=== PATIENT | male | born 1955 | race African-American/Black ===

== ENCOUNTER 2023-12-03 13:54 | Inpatient (IN) | payer MEDICARE, OTHER ==
[~2023-12-03] VITALS: Ht 180.3 cm; Wt 93.6 kg
[2023-12-03 15:08] LABS: Basophils # (auto) 0 10 ^3/uL (0-0.2); Basophils % (auto) 0.3 % (0.0-2.0); Eosinophils # (auto) 0.1 10 ^3/uL (0-0.8); Eosinophils % (auto) 3.7 % (0.0-7.0); Hematocrit 38.3 % (41.0-53.0); Hemoglobin 12.8 g/dL (13.5-17.5); Lymphocytes # (auto) 1.1 10 ^3/uL (0.4-5.4); Lymphocytes % (auto) 31.9 % (10.0-50.0); Mean Corpuscular Hemoglobin 30.6 pg (28.0-32.0); Mean Corpuscular Hgb Conc. 33.5 g/dL (32.0-36.0); Mean Corpuscular Volume 91.3 fL (80.0-100.0); Monocytes # (auto) 0.3 10 ^3/uL (0-1.3); Monocytes % (auto) 8.3 % (0.0-12.0); Neutrophils # (auto) 1.9 10 ^3/uL (1.6-8.6); Neutrophils % (auto) 55.8 % (37.0-80.0); Nucleated Red Blood Cells % 0.4 %; Red Cell Distribution Width 14.4 % (11.8-14.3); White Blood Cell 3.5 10^3/uL (4.4-10.8)
[2023-12-03 15:27] LABS: Alanine Aminotransferase 18 U/L (7-40); Albumin 3.3 g/dL (3.2-4.8); Alkaline Phosphatase 61 U/L (46-116); Anion Gap 3 (5-15); Aspartate Aminotransferase 23 U/L (13-40); BUN/Creatinine Ratio 53.3 (10.0-20.0); Blood Alcohol < 3.0 mg/dL (<10); Blood Urea Nitrogen 48 mg/dL (9-23); Calcium 9.3 mg/dL (8.5-10.1); Carbon Dioxide 33 mmol/L (20-30); Chloride 109 mmol/L (98-107); Glucose 84 mg/dL (74-106); Potassium 3.8 mmol/L (3.5-5.1); Sodium 145 mmol/L (136-145)
[2023-12-03 15:28] LABS: Bilirubin, Total 0.3 mg/dL (0.2-1.0); Total Protein 5.7 g/dL (5.7-8.2)
[2023-12-03] MEDS ORDERED: ACETAMINOPHEN 325 MG TAB PO PRN (19:00)
[2023-12-03] MEDS ORDERED: NITROGLYCERIN 0.4 MG SL TAB SL PRN (19:00)
[2023-12-03] MEDS ORDERED: ONDANSETRON HCL 4 MG/2 ML VIAL IV PRN (19:00)
[2023-12-03] MEDS ORDERED: MORPHINE SULFATE INJ 2 MG/ml SYRG IV PRN (19:00)
[2023-12-03] MEDS ORDERED: DOCUSATE SOD 100 MG CAP PO PRN (19:00)
[2023-12-03 20:45] VITALS: PULSE 58; RESP 12; O2SAT 99
[2023-12-03 21:45] VITALS: PULSE 57; RESP 8; O2SAT 99
[2023-12-03] MEDS: SODIUM CHLORIDE 0.9% 500 ML IV ONE (22:08)
[2023-12-03] MEDS: SODIUM CHLORIDE 0.9% 1,000 ML IV SCH (22:09)
[2023-12-03] MEDS: PANTOPRAZOLE 40 MG/10 ML VIAL INJ IV SCH (22:43)
[2023-12-04] VITALS (7 sets, daily range): BP systolic 91–128; BP diastolic 58–74; PULSE 45–58; RESP 10–18; O2SAT 96–100
[2023-12-04 05:12] LABS: Basophils # (auto) 0 10 ^3/uL (0-0.2); Basophils % (auto) 0.3 % (0.0-2.0); Eosinophils # (auto) 0.2 10 ^3/uL (0-0.8); Hematocrit 39.1 % (41.0-53.0); Hemoglobin 13.1 g/dL (13.5-17.5); Lymphocytes # (auto) 1.1 10 ^3/uL (0.4-5.4); Lymphocytes % (auto) 26.7 % (10.0-50.0); Mean Corpuscular Hemoglobin 30.6 pg (28.0-32.0); Mean Corpuscular Hgb Conc. 33.6 g/dL (32.0-36.0); Mean Corpuscular Volume 90.9 fL (80.0-100.0); Monocytes # (auto) 0.4 10 ^3/uL (0-1.3); Neutrophils # (auto) 2.4 10 ^3/uL (1.6-8.6); Nucleated Red Blood Cells % 0.7 %; Red Cell Distribution Width 14.4 % (11.8-14.3); White Blood Cell 4.1 10^3/uL (4.4-10.8)
[2023-12-04 05:45] LABS: Alanine Aminotransferase 18 U/L (7-40); Albumin 3.4 g/dL (3.2-4.8); Alkaline Phosphatase 63 U/L (46-116); Anion Gap 5 (5-15); Aspartate Aminotransferase 24 U/L (13-40); Bilirubin, Total 0.4 mg/dL (0.2-1.0); Calcium 9.6 mg/dL (8.5-10.1); Carbon Dioxide 28 mmol/L (20-30); Chloride 111 mmol/L (98-107); Cholesterol 122 mg/dL (< 200); Glucose 73 mg/dL (74-106); HDL Cholesterol 43 mg/dL (40-59); LDL Cholesterol 55 mg/dL (< 100); Potassium 3.9 mmol/L (3.5-5.1); Sodium 144 mmol/L (136-145); Total Protein 6.1 g/dL (5.7-8.2); Triglycerides 53 mg/dL (< 150)
[2023-12-04 05:50] LABS: Blood Urea Nitrogen 30 mg/dL (9-23)
[2023-12-04] MEDS: ENOXAPARIN SOD 40 MG/0.4 ML SYRINGE SC SCH (09:08)
[2023-12-04] MEDS ORDERED: AML5T PO ×2 (09:42→10:09)
[2023-12-04] MEDS ORDERED: FLUT250M2 INH (09:55)
[2023-12-04] MEDS ORDERED: [UNRECOGNIZED DRUG - CODE] OP (10:09)
[2023-12-04] MEDS ORDERED: DORZ2SOL18 EACHEYE (10:09)
[2023-12-04] MEDS ORDERED: IPRAAER6 IN (10:09)
[2023-12-04] MEDS ORDERED: GLUC1CAP12 PO (10:09)
[2023-12-04] MEDS ORDERED: DIVA1TAB59 PO (10:09)
[2023-12-04] MEDS ORDERED: GLUCTAB8 OR (10:09)
[2023-12-04] MEDS ORDERED: MELA3TAB27 PO (10:09)
[2023-12-04] MEDS ORDERED: RIS1T PO (10:09)
[2023-12-04] MEDS ORDERED: QUET1TAB11 PO (10:09)
[2023-12-04] MEDS ORDERED: SPIR25TA8 PO (10:09)
[2023-12-04] MEDS ORDERED: BENA-25 PO (10:09)
[2023-12-04] MEDS ORDERED: LATA0.008 EACHEYE (10:09)
[2023-12-04] MEDS ORDERED: ALBUAER3 IN (10:09)
[2023-12-04] MEDS ORDERED: LORA-1121 PO (10:09)
[2023-12-04] MEDS: LORazepam 2MG/ML-1ML VIAL ONE (13:12)
[2023-12-04] MEDS: LORazepam 2MG/ML-1ML VIAL IV ONE (13:15)
[2023-12-04] MEDS: levETIRAcetam 1000 mg/100ml 100 ML IV ONE (14:26)
[2023-12-04] MEDS: ENALAPRIL MALEATE 10 MG TAB PO ONE (14:28)
[2023-12-04] MEDS: D5W/SOD CHL 0.45% 1,000 ML IV SCH (20:20)
[2023-12-04] MEDS ORDERED: LORazepam 2MG/ML-1ML VIAL IV PRN (20:30)
[2023-12-04] MEDS ORDERED: VALPROIC ACID 250 MG/5 ML ORAL SOLN GT SCH (22:00)
[2023-12-04] MEDS ORDERED: levETIRAcetam 500 mg/100ml 100 ML IV SCH (22:00)
[2023-12-04] MEDS: MELATONIN 5 MG TAB PO SCH (22:00)
[2023-12-04] MEDS: QUEtiapine FUMARATE 25 MG TAB PO SCH (22:00)
[2023-12-04] MEDS: VALPROIC ACID 250 MG/5 ML ORAL SOLN PO SCH (23:03)
[2023-12-05] VITALS (8 sets, daily range): BP systolic 101–122; BP diastolic 56–70; PULSE 45–68; RESP 12–18; TEMP 95.6; O2SAT 68–100
[2023-12-05 00:28] LABS: COVID19 ANTIGEN SOFIA FIA NEGATIVE (NEGATIVE)
[2023-12-05 04:08] LABS: Rapid Influenza A Negative (Negative); Rapid Influenza B Negative (Negative)
[2023-12-05] MEDS: risperiDONE 1 MG TAB PO SCH (09:46)
[2023-12-05] MEDS: amLODIPine BESYLATE 5 MG TAB PO SCH (09:53)
[2023-12-05] MEDS: SPIRONOLACTONE 25 MG TAB PO SCH (09:54)
[2023-12-05] MEDS: SODIUM CHLORIDE 0.9% 500 ML IV ONE (22:00)
[2023-12-06] VITALS (8 sets, daily range): BP systolic 105–142; BP diastolic 54–84; PULSE 50–79; RESP 12–61; TEMP 93.9–97.7; O2SAT 95–99
[2023-12-07] VITALS (10 sets, daily range): BP systolic 110–135; BP diastolic 62–77; PULSE 51–90; RESP 12–15; TEMP 93.4–98.3; O2SAT 97–99
[2023-12-08 05:00] VITALS: BP 152/85; PULSE 73; RESP 13; TEMP 94.2; O2SAT 98
[2023-12-08 06:13] LABS: Basophils # (auto) 0 10 ^3/uL (0-0.2); Basophils % (auto) 0.2 % (0.0-2.0); Eosinophils # (auto) 0.2 10 ^3/uL (0-0.8); Eosinophils % (auto) 3.6 % (0.0-7.0); Hematocrit 39.2 % (41.0-53.0); Hemoglobin 13.4 g/dL (13.5-17.5); Lymphocytes # (auto) 1.1 10 ^3/uL (0.4-5.4); Lymphocytes % (auto) 21.5 % (10.0-50.0); Mean Corpuscular Hemoglobin 30.5 pg (28.0-32.0); Mean Corpuscular Hgb Conc. 34.1 g/dL (32.0-36.0); Mean Corpuscular Volume 89.5 fL (80.0-100.0); Monocytes # (auto) 0.7 10 ^3/uL (0-1.3); Monocytes % (auto) 14.4 % (0.0-12.0); Neutrophils % (auto) 60.3 % (37.0-80.0); Nucleated Red Blood Cells % 0.4 %; Red Blood Cells 4.38 10^6/uL (4.5-5.90); Red Cell Distribution Width 14.1 % (11.8-14.3); White Blood Cell 4.9 10^3/uL (4.4-10.8)
[2023-12-08 08:00] VITALS: PULSE 89; RESP 12
[2023-12-08 09:00] VITALS: BP 116/86; PULSE 90; RESP 20; TEMP 97.3; O2SAT 99
[2023-12-08 16:04] VITALS: BP 116/86; PULSE 90; RESP 20; TEMP 36.3; O2SAT 99
[2023-12-08 17:00] VITALS: BP 114/77; PULSE 79; RESP 18; TEMP 97.7; O2SAT 98
== END 2023-12-08 18:00 | DRG 100 ==
LOC: EDBD 13:54 → ER 13:54 → OVERFLOW 18:56 → CENTRAL 12-04 08:25 → TELE-CENTR 12-05 00:06
PROVIDERS: ADMIT Family Medicine; ATTEND Family Medicine
DX: G40.901 Epilepsy, unspecified, not intractable, with status epilepticus (principal); G93.41 Metabolic encephalopathy; E86.0 Dehydration; F31.9 Bipolar disorder, unspecified; Z20.822 Contact with and (suspected) exposure to COVID-19; I10 Essential (primary) hypertension; H54.7 Unspecified visual loss; F25.9 Schizoaffective disorder, unspecified; F03.90 Unspecified dementia, unspecified severity, without behavioral disturbance, psychotic disturbance, mood disturbance, and anxiety
CPT/HCPCS: 36415; 70450; 70551; 71045; 80053; 80061; 80164; 80320; 82140; 82962; 83036; 84443; 84484; 85025; 85379; 87426; 87493; 87804; 92610; 93005; 95819; 97163; C9113; G0378; J7042

== ENCOUNTER 2024-02-17 18:40 | Inpatient (IN) | payer MEDICARE, MEDICAID ==
[~2024-02-17] VITALS: Ht 177.8 cm; Wt 84.0 kg
[~2024-02-17 18:40] MED LIST: ALBUAER3 IN; AML5T PO; BENA-25 PO; DIVA1TAB59 PO; DORZ2SOL18 EACHEYE; FLUT250M2 INH; GLUC1CAP12 PO; GLUCTAB8 OR; IPRAAER6 IN; LATA0.008 EACHEYE; LORA-1121 PO; MELA3TAB27 PO; QUET1TAB11 PO; RIS1T PO; SPIR25TA8 PO; [UNRECOGNIZED DRUG - CODE] OP
[2024-02-17 19:38] LABS: Basophils # (auto) 0 10 ^3/uL (0-0.2); Basophils % (auto) 0.7 % (0.0-2.0); Eosinophils # (auto) 0.3 10 ^3/uL (0-0.8); Eosinophils % (auto) 4.2 % (0.0-7.0); Hematocrit 40.8 % (41.0-53.0); Lymphocytes # (auto) 1.5 10 ^3/uL (0.4-5.4); Lymphocytes % (auto) 20.7 % (10.0-50.0); Mean Corpuscular Hemoglobin 31.3 pg (28.0-32.0); Mean Corpuscular Hgb Conc. 34.2 g/dL (32.0-36.0); Mean Corpuscular Volume 91.4 fL (80.0-100.0); Monocytes # (auto) 0.8 10 ^3/uL (0-1.3); Monocytes % (auto) 10.9 % (0.0-12.0); Neutrophils # (auto) 4.5 10 ^3/uL (1.6-8.6); Neutrophils % (auto) 63.5 % (37.0-80.0); Nucleated Red Blood Cells % 0.1 %; Red Blood Cells 4.47 10^6/uL (4.5-5.90); Red Cell Distribution Width 15.6 % (11.8-14.3)
[2024-02-17 19:59] LABS: INR 1.05 (0.9-1.15); Partial Thromboplastin Time 30.7 SEC (24.5-34.5); Prothrombin Time 11.1 sec (9.3-11.8)
[2024-02-17 20:07] LABS: Alanine Aminotransferase 17 U/L (7-40); Albumin 3.3 g/dL (3.2-4.8); Alkaline Phosphatase 68 U/L (46-116); Anion Gap 6 (5-15); Aspartate Aminotransferase 14 U/L (13-40); BUN/Creatinine Ratio 21.2 (10.0-20.0); Blood Urea Nitrogen 18 mg/dL (9-23); Calcium 9.1 mg/dL (8.7-10.4); Carbon Dioxide 25 mmol/L (20-30); Chloride 109 mmol/L (98-107); Glucose 95 mg/dL (74-106); Magnesium 1.7 mg/dL (1.6-2.6); Potassium 4.2 mmol/L (3.5-5.1); Sodium 140 mmol/L (136-145)
[2024-02-17 20:08] LABS: Bilirubin, Total 0.2 mg/dL (0.2-1.0); Total Protein 5.9 g/dL (5.7-8.2)
[2024-02-17] MEDS: ALBUTEROL SULF 2.5 MG/0.5ML(0.5%) NEB SOLN NEB ONE (20:24)
[2024-02-17] MEDS: IPRATROPIUM BROM 0.5 MG/2.5ML INH SOL NEB ONE (20:24)
[2024-02-17] MEDS: CLOPIDOGREL BISULFATE 75 MG TAB PO ONE (20:35)
[2024-02-17] MEDS: methylPREDNISolone SOD SUCC 125 MG/2 ML VL IV ONE (20:36)
[2024-02-17] MEDS: PIPERACILLIN-TAZOB 3.375GM 100 ML IV ONE (20:49)
[2024-02-17] MEDS: ASPirin 81 mg TAB PO ONE (20:50)
[2024-02-17 21:15] VITALS: PULSE 75
[2024-02-17] MEDS ORDERED: ACETAMINOPHEN 325 MG TAB PO PRN (22:45)
[2024-02-17] MEDS ORDERED: MORPHINE SULFATE INJ 2 MG/ml SYRG IV PRN (22:45)
[2024-02-17] MEDS ORDERED: ONDANSETRON HCL 4 MG/2 ML VIAL IV PRN (22:45)
[2024-02-17] MEDS ORDERED: NITROGLYCERIN 0.4 MG SL TAB SL PRN (22:45)
[2024-02-17] MEDS ORDERED: ALBUTEROL SULF 2.5 MG/0.5ML(0.5%) NEB SOLN NEB PRN (22:45)
[2024-02-18] VITALS (10 sets, daily range): BP systolic 103–129; BP diastolic 70–75; PULSE 57–102; RESP 16–22; TEMP 97.6–98.6; O2SAT 95–98
[2024-02-18 00:52] LABS: Urine Bacteria None Seen /hpf (None Seen)
[2024-02-18 01:06] LABS: Urine Blood Negative /uL (Negative); Urine Clarity Clear (Clear); Urine Color Yellow (Yellow); Urine Protein, UAD Negative (Negative); Urine Specific Gravity 1.028 (1.001-1.035); Urine Urobilinogen Normal (Negative); Urine WBC 2 /hpf (0 - 3); Urine pH 5.5 (5.0-9.0)
[2024-02-18 06:55] LABS: Basophils # (auto) 0 10 ^3/uL (0-0.2); Basophils % (auto) 0.1 % (0.0-2.0); Eosinophils # (auto) 0 10 ^3/uL (0-0.8); Hematocrit 42.6 % (41.0-53.0); Hemoglobin 14.6 g/dL (13.5-17.5); Lymphocytes # (auto) 0.7 10 ^3/uL (0.4-5.4); Lymphocytes % (auto) 9.6 % (10.0-50.0); Mean Corpuscular Hemoglobin 31.2 pg (28.0-32.0); Mean Corpuscular Hgb Conc. 34.2 g/dL (32.0-36.0); Mean Corpuscular Volume 91.1 fL (80.0-100.0); Monocytes # (auto) 0.1 10 ^3/uL (0-1.3); Monocytes % (auto) 1.2 % (0.0-12.0); Neutrophils # (auto) 6.6 10 ^3/uL (1.6-8.6); Neutrophils % (auto) 89.1 % (37.0-80.0); Red Blood Cells 4.67 10^6/uL (4.5-5.90); Red Cell Distribution Width 15.4 % (11.8-14.3); White Blood Cell 7.4 10^3/uL (4.4-10.8)
[2024-02-18 07:20] LABS: Calcium 9.8 mg/dL (8.7-10.4); Chloride 108 mmol/L (98-107); Sodium 139 mmol/L (136-145)
[2024-02-18 07:21] LABS: Anion Gap 8 (5-15); Carbon Dioxide 23 mmol/L (20-30)
[2024-02-18 07:26] LABS: BUN/Creatinine Ratio 15.9 (10.0-20.0); Blood Urea Nitrogen 14 mg/dL (9-23); Glucose 133 mg/dL (74-106)
[2024-02-18 09:26] LABS: Erythrocyte Sedimentation Rate 4 mm/hr (0-20)
[2024-02-18] MEDS: AZITHROMYCIN 500MG/ 250ML 250 ML IV SCH (09:34)
[2024-02-18] MEDS: cefTRIAXone 1GM/50ML D5W 50 ML IV SCH (09:34)
[2024-02-18] MEDS: amLODIPine BESYLATE 5 MG TAB PO SCH (09:35)
[2024-02-18] MEDS: SPIRONOLACTONE 25 MG TAB PO SCH (09:35)
[2024-02-18] MEDS: QUEtiapine FUMARATE 25 MG TAB PO SCH (09:35)
[2024-02-18] MEDS: risperiDONE 1 MG TAB PO SCH (09:36)
[2024-02-18] MEDS: ENOXAPARIN SOD 40 MG/0.4 ML SYRINGE SC SCH (09:36)
[2024-02-18] MEDS: ERGOCALCIFEROL 50,000 UNIT(1.25MG) CAP PO SCH (11:06)
[2024-02-18] MEDS: PANTOPRAZOLE 40 MG TAB PO ONE (11:06)
[2024-02-18] MEDS: MAGNESIUM SULFATE 1GM/100ML 100 ML IV ONE (13:32)
[2024-02-18] MEDS: MELATONIN 5 MG TAB PO SCH (21:11)
[2024-02-18] MEDS: DORZOLAMIDE HCL 2% OPTH(EYE) SOL 10ML EACHEYE SCH (22:42)
[2024-02-19] VITALS (7 sets, daily range): BP systolic 101–131; BP diastolic 60–79; PULSE 57–70; RESP 16–21; TEMP 97.8–98.9; O2SAT 95–99
[2024-02-19] MEDS: PANTOPRAZOLE 40 MG TAB PO SCH (06:00)
[2024-02-19 06:44] LABS: Anion Gap 10 (5-15); Carbon Dioxide 26 mmol/L (20-30); Chloride 107 mmol/L (98-107); Potassium 4.1 mmol/L (3.5-5.1); Sodium 143 mmol/L (136-145)
[2024-02-19 06:45] LABS: Calcium 9.2 mg/dL (8.7-10.4)
[2024-02-19 06:50] LABS: BUN/Creatinine Ratio 15.2 (10.0-20.0); Blood Urea Nitrogen 14 mg/dL (9-23); Glucose 88 mg/dL (74-106)
[2024-02-19] MEDS: QUEtiapine FUMARATE 25 MG TAB PO SCH (10:00)
[2024-02-19] MEDS: LORazepam 2MG/ML-1ML VIAL IV ONE (10:15)
[2024-02-19] MEDS: MIDAZOLAM HCL 2MG/2ML 2ml VIAL (1mg/ml) ONE (10:46)
[2024-02-19] MEDS: LIDOCAINE 2%HCL (LOCAL ANESTH.) INJ 10ml MDV ONE (10:58)
[2024-02-19] MEDS: fentaNYL CITRATE 100 MCG/2 ML VL ONE (10:58)
[2024-02-19] MEDS: ENOXAPARIN SOD 40 MG/0.4 ML SYRINGE SC SCH (11:07)
[2024-02-20 05:00] VITALS: BP 112/71; PULSE 45; RESP 18; TEMP 97.9; O2SAT 99
[2024-02-20] MEDS: HYDROcodone-ACET 5/325MG TAB PO PRN (06:03)
[2024-02-20 07:07] LABS: Basophils # (auto) 0 10 ^3/uL (0-0.2); Basophils % (auto) 0.6 % (0.0-2.0); Eosinophils # (auto) 0.4 10 ^3/uL (0-0.8); Eosinophils % (auto) 5.4 % (0.0-7.0); Hematocrit 37.8 % (41.0-53.0); Lymphocytes # (auto) 1.9 10 ^3/uL (0.4-5.4); Lymphocytes % (auto) 29.2 % (10.0-50.0); Mean Corpuscular Hemoglobin 31.3 pg (28.0-32.0); Mean Corpuscular Hgb Conc. 34.4 g/dL (32.0-36.0); Monocytes # (auto) 0.6 10 ^3/uL (0-1.3); Monocytes % (auto) 8.7 % (0.0-12.0); Neutrophils # (auto) 3.7 10 ^3/uL (1.6-8.6); Neutrophils % (auto) 56.1 % (37.0-80.0); Nucleated Red Blood Cells % 0.1 %; Red Blood Cells 4.15 10^6/uL (4.5-5.90); Red Cell Distribution Width 15.3 % (11.8-14.3); White Blood Cell 6.6 10^3/uL (4.4-10.8)
[2024-02-20 07:21] LABS: Anion Gap 4 (5-15); Calcium 9.1 mg/dL (8.7-10.4); Carbon Dioxide 28 mmol/L (20-30); Chloride 108 mmol/L (98-107); Potassium 4.1 mmol/L (3.5-5.1); Sodium 140 mmol/L (136-145)
[2024-02-20 07:27] LABS: BUN/Creatinine Ratio 20.8 (10.0-20.0); Blood Urea Nitrogen 16 mg/dL (9-23); Glucose 83 mg/dL (74-106)
[2024-02-20 08:00] VITALS: PULSE 72; RESP 16; O2SAT 95
[2024-02-20 09:00] VITALS: BP 112/72; PULSE 55; RESP 16; TEMP 97.1; O2SAT 97
[2024-02-20 13:00] VITALS: BP 102/57; PULSE 69; RESP 18; TEMP 97.4; O2SAT 98
[2024-02-20] MEDS: SODIUM CHLORIDE 0.9% 500 ML IV ONE (13:33)
[2024-02-20 17:00] VITALS: BP 93/60; PULSE 58; RESP 16; TEMP 97.7; O2SAT 98
[2024-02-20 20:00] VITALS: PULSE 64; RESP 16; O2SAT 98
[2024-02-21 04:56] VITALS: BP 122/71; PULSE 50; RESP 15; TEMP 97.8; O2SAT 98
[2024-02-21 09:00] VITALS: BP 129/81; PULSE 61; RESP 16; TEMP 98; O2SAT 99
[2024-02-21] MEDS: ASPirin 81 mg TAB PO SCH (09:42)
[2024-02-21 10:15] LABS: Chloride 107 mmol/L (98-107); Potassium 3.9 mmol/L (3.5-5.1); Sodium 139 mmol/L (136-145)
[2024-02-21 10:16] LABS: Anion Gap 4 (5-15); Carbon Dioxide 28 mmol/L (20-30)
[2024-02-21 10:17] LABS: Calcium 9.1 mg/dL (8.7-10.4)
[2024-02-21 10:21] LABS: BUN/Creatinine Ratio 17.5 (10.0-20.0); Blood Urea Nitrogen 14 mg/dL (9-23); Glucose 99 mg/dL (74-106)
[2024-02-21 13:00] VITALS: BP 126/67; PULSE 61; RESP 16; TEMP 97.9; O2SAT 99
[2024-02-21 17:00] VITALS: BP 113/71; PULSE 54; RESP 16; TEMP 97.7; O2SAT 97
[2024-02-21] MEDS: ATORVASTATIN 20 MG TAB PO SCH (21:49)
[2024-02-22 00:57] VITALS: BP 122/74; PULSE 51; RESP 18; TEMP 97.9; O2SAT 97
[2024-02-22] MEDS: LORazepam 2MG/ML-1ML VIAL IV PRN (01:33)
[2024-02-22 04:52] VITALS: BP 128/77; PULSE 60; RESP 19; TEMP 97.9; O2SAT 97
[2024-02-22 07:22] LABS: Anion Gap 7 (5-15); Carbon Dioxide 25 mmol/L (20-30); Chloride 107 mmol/L (98-107); Sodium 139 mmol/L (136-145)
[2024-02-22 07:23] LABS: Calcium 9.7 mg/dL (8.7-10.4)
[2024-02-22 07:28] LABS: BUN/Creatinine Ratio 12.5 (10.0-20.0); Blood Urea Nitrogen 10 mg/dL (9-23); Glucose 84 mg/dL (74-106)
[2024-02-22 09:31] VITALS: BP 139/83; PULSE 61; RESP 17; TEMP 97.7; O2SAT 98
[2024-02-22] MEDS: SUCRALFATE 1 GM TAB PO SCH (09:47)
[2024-02-22] MEDS: PANTOPRAZOLE 40 MG/10 ML VIAL INJ IV SCH (09:47)
[2024-02-22 13:26] VITALS: BP 135/82; PULSE 88; RESP 18; TEMP 97.6; O2SAT 98
[2024-02-22 16:38] VITALS: BP 133/80; PULSE 87; RESP 18; TEMP 97.8; O2SAT 97
[2024-02-22 21:00] VITALS: BP 135/79; PULSE 56; RESP 20; TEMP 97.9; O2SAT 98
[2024-02-23 01:00] VITALS: BP 139/71; PULSE 54; RESP 20; TEMP 98; O2SAT 97
[2024-02-23 05:00] VITALS: BP 130/95; PULSE 55; RESP 20; TEMP 98.1; O2SAT 98
[2024-02-23 09:00] VITALS: BP 127/70; PULSE 56; RESP 19; TEMP 99.6; O2SAT 100
[2024-02-23 13:00] VITALS: BP 118/74; PULSE 76; RESP 18; TEMP 98.2; O2SAT 99
[2024-02-23] MEDS ORDERED: GASTROGRAFIN 120 ML SOL ONE (14:29)
[2024-02-23 17:00] VITALS: BP 126/72; PULSE 65; RESP 17; TEMP 98.2; O2SAT 98
[2024-02-23] MEDS: OMNIPAQUE 12mg/ml 500ml ORAL SOLUTION PO ONE (17:34)
[2024-02-23] MEDS: fentaNYL CITRATE 100 MCG/2 ML VL IV ONE (17:34)
[2024-02-23] MEDS: IOHEXOL 300 MG/ML 100ML BOTTLE IJ ONE (17:34)
[2024-02-23 20:00] VITALS: RESP 20
[2024-02-24] VITALS (7 sets, daily range): BP systolic 94–122; BP diastolic 62–71; PULSE 52–64; RESP 16–20; TEMP 97.5–98.7; O2SAT 95–100
[2024-02-24 07:03] LABS: Basophils # (auto) 0 10 ^3/uL (0-0.2); Basophils % (auto) 0.4 % (0.0-2.0); Eosinophils # (auto) 0.3 10 ^3/uL (0-0.8); Eosinophils % (auto) 4.5 % (0.0-7.0); Hematocrit 42.3 % (41.0-53.0); Hemoglobin 14.5 g/dL (13.5-17.5); Lymphocytes # (auto) 1.4 10 ^3/uL (0.4-5.4); Lymphocytes % (auto) 20.3 % (10.0-50.0); Mean Corpuscular Hemoglobin 31.1 pg (28.0-32.0); Mean Corpuscular Hgb Conc. 34.3 g/dL (32.0-36.0); Mean Corpuscular Volume 90.7 fL (80.0-100.0); Monocytes # (auto) 0.9 10 ^3/uL (0-1.3); Monocytes % (auto) 13.6 % (0.0-12.0); Neutrophils # (auto) 4.1 10 ^3/uL (1.6-8.6); Neutrophils % (auto) 61.2 % (37.0-80.0); Nucleated Red Blood Cells % 0.1 %; Red Blood Cells 4.66 10^6/uL (4.5-5.90); Red Cell Distribution Width 14.5 % (11.8-14.3); White Blood Cell 6.7 10^3/uL (4.4-10.8)
[2024-02-24 07:04] LABS: Chloride 104 mmol/L (98-107); Potassium 4.4 mmol/L (3.5-5.1); Sodium 136 mmol/L (136-145)
[2024-02-24 07:05] LABS: Anion Gap 5 (5-15); Calcium 9.4 mg/dL (8.7-10.4); Carbon Dioxide 27 mmol/L (20-30)
[2024-02-24 07:10] LABS: BUN/Creatinine Ratio 9.9 (10.0-20.0); Blood Urea Nitrogen 9 mg/dL (9-23); Glucose 86 mg/dL (74-106)
[2024-02-24] MEDS ORDERED: GASTROGRAFIN 120 ML SOL ONE (12:39)
[2024-02-24] MEDS ORDERED: CLINIMIX PER PHARMACY 0 ML IV SCH (19:00)
[2024-02-24] MEDS ORDERED: DEXTROSE (50%) 50ML SYRG IV SCH (20:00)
[2024-02-24] MEDS: AMINO ACID INFUSION IN D10W 1,000 ML IV SCH (21:46)
[2024-02-25] MEDS: InsuLIN REG 1unit/0.01ml Soln (100units/ml) SC SCH
[2024-02-25] MEDS: ACCU-CHEK COMFORT CURVE STRIP VI SCH (00:03)
[2024-02-25 01:00] VITALS: BP 99/59; PULSE 63; RESP 19; TEMP 97.3; O2SAT 95
[2024-02-25 05:00] VITALS: BP 114/67; PULSE 46; RESP 19; TEMP 97.6; O2SAT 97
[2024-02-25 09:00] VITALS: BP 113/70; PULSE 61; RESP 18; TEMP 97.8; O2SAT 96
[2024-02-25 13:00] VITALS: BP 119/79; PULSE 64; RESP 18; TEMP 98; O2SAT 95
[2024-02-25 14:19] VITALS: BP 114/64; PULSE 82; RESP 18; TEMP 36.4; O2SAT 96
== END 2024-02-25 16:15 | DRG 199 ==
LOC: ER 18:40 → EDBD 18:40 → TELE 22:49 → TELE-EAST 02-18 03:47 → EAST 02-19 04:20 → WEST WING 02-23 18:46
PROVIDERS: ADMIT Internal Medicine; ATTEND Anesthesiology
PROC: 0W9B30Z Drainage of Left Pleural Cavity with Drainage Device, Percutaneous Approach (ICD-10-PCS; principal; 2024-02-19)
DX: J93.11 Primary spontaneous pneumothorax (principal); J15.69 Pneumonia due to other Gram-negative bacteria; J96.01 Acute respiratory failure with hypoxia; J15.9 Unspecified bacterial pneumonia; I69.354 Hemiplegia and hemiparesis following cerebral infarction affecting left non-dominant side; I50.32 Chronic diastolic (congestive) heart failure; J98.11 Atelectasis; K80.20 Calculus of gallbladder without cholecystitis without obstruction; K59.00 Constipation, unspecified; F31.9 Bipolar disorder, unspecified; E55.9 Vitamin D deficiency, unspecified; Z96.651 Presence of right artificial knee joint; I11.0 Hypertensive heart disease with heart failure; K21.9 Gastro-esophageal reflux disease without esophagitis; F20.9 Schizophrenia, unspecified; Z79.899 Other long term (current) drug therapy; Z87.891 Personal history of nicotine dependence; Z79.82 Long term (current) use of aspirin
CPT/HCPCS: 10005; 36415; 71045; 71250; 74018; 74176; 74177; 74250; 77012; 80048; 80053; 81001; 82306; 82607; 82962; 83036; 83735; 83880; 84443; 84484; 85025; 85610; 85652; 85730; 86141; 87081; 93005; 93306; 93971; 94640; 96374; 99291; C1729; G0378; J2001; J2250; J2470; J2543

== ENCOUNTER 2024-06-03 14:44 | Inpatient (IN) | payer MEDICARE, MEDICAID ==
[~2024-06-03] VITALS: Ht 180.3 cm; Wt 83.3 kg
[~2024-06-03 14:44] MED LIST changes: +BRIM1SOL OP; -[UNRECOGNIZED DRUG - CODE] OP
[2024-06-03 15:10] VITALS: PULSE 73; RESP 20; O2SAT 100
--- NOTE | 2024-06-03 15:34 | ED.PDOC ---
HPI (NEURO) HPI Comments 68y F who presents to the ED via EMS for chief complaint of hypotension. EMS states pt is resident at local care facility and states pt has unwitnessed syncopal episode and was found on the ground and EMS was called to the scene.EMS states sitting down from standing position and states pt started to have pale complexion and felt dizzy EMS states on scene pt had BP of 77/51 and pt was given 1 L of fluid bolus. Pt had vitals checked and pt BP sanya to 109/58 and pt was brought to the ED. Pt has noted history of HLD, dementia, CVA and schizophrenia. Pt unable to answer any questions at this time but is alert and oriented x 2 in the ED. Chief Complaint: Low Blood Pressure Time Seen by MD: 15:32 Primary Care Provider: UNKNOWN Reviewed Notes: Home Health Administrator Notes Information Source: Emergency Med Personnel Mode of Arrival: EMS Brought in by: EMS Past Medical History PAST MEDICAL HISTORY: Angina, CVA, Dementia, Seizures Surgical History: Unknown Family History Family History: Unknown Social History Smoker: Non-Smoker Alcohol: Denies ETOH Use Drugs: Denies Drug Use Lives In: Longterm Constitutional: reports: fatigue, malaise, weakness; denies: chills, diaphoresis, fever, sweats, others EENTM: denies: blurred vision, double vision, ear bleeding, ear discharge, ear drainage, ear pain, ear ringing, eye pain, eye redness, hearing loss, mouth pain, mouth swelling, nasal discharge, nose bleeding, nose congestion, nose pain, photophobia, tearing, throat pain, throat swelling, voice changes, others Respiratory: denies: cough, hemoptysis, orthopnea, SOB at rest, shortness of breath, SOB with excertion, stridor, wheezing, others Cardiovascular: denies: chest pain, dizzy spells, diaphoresis, Dyspnea on exertion, edema, irregular heart beat, left arm pain, lightheadedness, palpitations, PND, syncope, others Gastrointestinal: denies: abdomen distended, abdominal pain, blood streaked bowels, constipated, diarrhea, dysphagia, difficulty swallowing, hematemesis, melena, nausea, poor appetite, poor fluid intake, rectal bleeding, rectal pain, vomiting, others Genitourinary: denies: burning, dysuria, flank pain, frequency, hematuria, incontinence, penile discharge, penile sore, pain, testicle pain, testicle swelling, urgency, others Neurological: denies: dizziness, fainting, headache, left sided numbness, left sided weakness, numbness, paresthesia, pre-existing deficit, right sided numbness, right sided weakness, seizure, speech problems, tingling, tremors, weakness, others Musculoskeletal: denies: back pain, gout, joint pain, joint swelling, muscle pain, muscle stiffness, neck pain, others Integumetry: denies: bruises, change in color, change in hair/nails, dryness, laceration, lesions, lumps, rash, wounds, others Allergic/Immunocompromised: denies: Difficulty Healing, Frequent Infections, Hives, Itching, others Hematologic/Lymphatic: denies: anemia, blood clots, easy bleeding, easy bruising, swollen glands, others Endocrine: denies: excessive hunger, excessive sweating, excessive thirst, excessive urination, flushing, intolerance to cold, intolerance to heat, unexplained weight gain, unexplained weight loss, others Psychiatric: denies: anxiety, bipolar disorder, depression, hopeless, panic disorder, schizophrenia, sleepless, suicidal, others All Other Systems: Reviewed and Negative Physical Exam General Appearance: Moderate Distress HEENT: Normal ENT Inspection, Pharynx Normal, TMs Normal Neck: Full Range of Motion, Non-Tender, Normal, Normal Inspection Respiratory: Chest Non-Tender, Lungs Clear, No Accessory Muscle Use, No Respiratory Distress, Normal Breath Sounds Cardiovascular: No Edema, No JVD, No Murmur, No Gallop, Normal Peripheral Pulses, Regular Rate/Rhythm Breast Exam: Deferred Gastrointestinal: No Organomegaly, Non Tender, No Pulsatile Mass, Normal Bowel Sounds, Soft Genitalia: Deferred Pelvic: Deferred Rectal: Deferred Extremities: Decreased range of motion Musculoskeletal : Apperance: Normal Neurologic: Disoriented Cerebellar Function: NOT DONE Reflexes: NOT DONE Skin: Pallor Peripheral Pulses: 3+ Radial (R), 3+ Radial (L) Lymphatic: No Adenopathy Was a procedure done? Was a procedure done?: No Differential Diagnosis (SZ) Seizure: Psychogenic Seizure, Closed Head Injury, CVA/TIA General Weakness: Anemia, CVA, Dehydration, Electrolyte imbalance, Encephalopathy, Hypoglycemia, Hypotension, Myocardial infarction, Pulmonary embolus, TIA X-Ray, Labs, Meds, VS Vital Signs Date Time Temp Pulse Resp B/P (MAP) Pulse Ox O2 Delivery O2 Flow Rate FiO2 06/03/24 15:16 98.1 82 18 78/51 (60) 97 06/03/24 15:04 97.5 83 14 91/64 (73) 100 97.5 06/03/24 14:44 91 Lab Test 06/03/24 15:20 Range/Units White Blood Count 3.8 L 4.4-10.8 10^3/uL Red Blood Count 4.31 L 4.5-5.90 10^6/uL Hemoglobin 13.5 13.5-17.5 g/dL Hematocrit 38.9 L 41.0-53.0 % Mean Corpuscular Volume 90.1 80.0-100.0 fL Mean Corpuscular Hemoglobin 31.2 28.0-32.0 pg Mean Corpuscular Hemoglobin Concent 34.6 32.0-36.0 g/dL Red Cell Distribution Width 19.9 H 11.8-14.3 % Platelet Count 113 L 140-450 10^3/uL Mean Platelet Volume 7.8 6.9-10.8 fL Neutrophils (%) (Auto) 59.6 37.0-80.0 % Lymphocytes (%) (Auto) 21.7 10.0-50.0 % Monocytes (%) (Auto) 14.0 H 0.0-12.0 % Eosinophils (%) (Auto) 4.2 0.0-7.0 % Basophils (%) (Auto) 0.5 0.0-2.0 % Neutrophils # (Auto) 2.3 1.6-8.6 10 ^3/uL Lymphocytes # (Auto) 0.8 0.4-5.4 10 ^3/uL Monocytes # (Auto) 0.5 0-1.3 10 ^3/uL Eosinophils # (Auto) 0.2 0-0.8 10 ^3/uL Basophils # (Auto) 0 0-0.2 10 ^3/uL Nucleated Red Blood Cells 0.1 % Sodium Level Pending Potassium Level Pending Chloride Level Pending Carbon Dioxide Level Pending Anion Gap Pending Blood Urea Nitrogen Pending Creatinine Pending Glomerular Filtration Rate Calc Pending BUN/Creatinine Ratio Pending Serum Glucose Pending Calcium Level Pending Troponin I High Sensitivity 6 </=54 ng/L Patient disoriented. Dementia. Hypotension. Establish intravenous access. Was given fluids. Cardiac marker within normal limits. Possibly immunosuppressed. Chronic condition. Unknown whether infection. Reviewed his previous visit. Waiting for family. Continue cardiac monitoring. EKG reviewed does not show any acute changes. Time of 1ST Reevaluation: 16:00 Reevaluation 1ST: Unchanged Patient Education/Counseling: Other (pt has history of dementia) Family Education/Counseling: Diagnosis, No Family Present Departure 1 Departure Time of Disposition: 16:31 Impression: Primary Impression: Metabolic encephalopathy Additional Impressions: Anemia Qualified Codes: D64.9 - Anemia, unspecified Hypotension Qualified Codes: I95.9 - Hypotension, unspecified Disposition: ADMITTED INPATIENT Admit to: Med Surg Condition: Guarded Critical Care Note Critical Care Time?: Yes (45 min-critical care time only) Stability Stability form required: No Heart Score Heart Score: Heart Score Response (Comments) Value History Slightly Suspicious 0 EKG Normal 0 Age >65 2 Risk Factors >3 or Hx ASHD 2 Troponin Normal limit 0 Total 4 I personally scribed for LEWIS AVILA MD ([email or web address]) on 06/03/24 at 15:34. Electronically submitted by Elizabeth Bettencourt ([email or web address]). LEWIS AVILA MD Jun 03, 2024 15:34
--- NOTE | 2024-06-03 15:41 | DVH ---
CHEST RADIOGRAPH Indication:sob Technique: Single frontal view of the chest was obtained COMPARISON: XY CHEST XRAY 1 VIEW on DOS: 02/25/24, XY CHEST XRAY 1 VIEW on DOS: 02/24/24, XY CHEST XRAY 1 VIEW on DOS: 02/23/24 FINDINGS: Lines and Tubes: None Lungs: Mild congestion Pleura: No effusion. No pneumothorax. Cardiomediastinal contours: Cardiomegaly Bones: Unremarkable IMPRESSION: Cardiomegaly and mild congestion
[2024-06-03 15:56] LABS: Basophils # (auto) 0 10 ^3/uL (0-0.2); Basophils % (auto) 0.5 % (0.0-2.0); Eosinophils # (auto) 0.2 10 ^3/uL (0-0.8); Eosinophils % (auto) 4.2 % (0.0-7.0); Hematocrit 38.9 % (41.0-53.0); Hemoglobin 13.5 g/dL (13.5-17.5); Lymphocytes # (auto) 0.8 10 ^3/uL (0.4-5.4); Lymphocytes % (auto) 21.7 % (10.0-50.0); Mean Corpuscular Hemoglobin 31.2 pg (28.0-32.0); Mean Corpuscular Hgb Conc. 34.6 g/dL (32.0-36.0); Mean Corpuscular Volume 90.1 fL (80.0-100.0); Monocytes # (auto) 0.5 10 ^3/uL (0-1.3); Neutrophils # (auto) 2.3 10 ^3/uL (1.6-8.6); Neutrophils % (auto) 59.6 % (37.0-80.0); Nucleated Red Blood Cells % 0.1 %; Platelet Count (auto) 113 10^3/uL (140-450); Red Blood Cells 4.31 10^6/uL (4.5-5.90); Red Cell Distribution Width 19.9 % (11.8-14.3); White Blood Cell 3.8 10^3/uL (4.4-10.8)
[2024-06-03 16:46] LABS: Chloride 112 mmol/L (98-107); Potassium 3.5 mmol/L (3.5-5.1); Sodium 146 mmol/L (136-145)
[2024-06-03 16:47] LABS: Anion Gap 6 (5-15); Calcium 8.8 mg/dL (8.7-10.4); Carbon Dioxide 28 mmol/L (20-31)
[2024-06-03 16:52] LABS: BUN/Creatinine Ratio 24.7 (10.0-20.0); Blood Urea Nitrogen 21 mg/dL (9-23); Glucose 85 mg/dL (74-106)
[2024-06-03] MEDS: SODIUM CHLORIDE 0.9% 1,000 ML IV ONE ×2 (16:53→17:20)
--- NOTE | 2024-06-03 19:21 | ECG ---
[facility] Test Date: 2024-06-03 Test Time: 14:44:58 Pat Name: NGOZI CURRIE Department: ED Room: Gender: M Tube Man: DEEDEE : 1955 Requested By: EMERGENCY EMERGENCY Order Number: [id number] Reading MD: Measurements Intervals [place] Rate: 91 P: 27 UT: 217 QRS: -77 QRSD: 103 T: 22 QT: 379 QTc: 467 Interpretive Statements Sinus rhythm Prolonged UT interval Inferior infarct, old Artifact in lead(s) I,II,III,aVR,aVL,V1,V2,V3,V4 and baseline wander in lead(s) V6 Please click the below link to view image of tracing.
[2024-06-03 19:45] VITALS: PULSE 83; RESP 19; O2SAT 100
[2024-06-03] MEDS ORDERED: ACETAMINOPHEN 325 MG TAB PO PRN (21:30)
[2024-06-03] MEDS ORDERED: ONDANSETRON HCL 4 MG/2 ML VIAL IV PRN (21:30)
[2024-06-03] MEDS ORDERED: ALBUTEROL SULF 2.5 MG/0.5ML(0.5%) NEB SOLN NEB PRN (21:30)
[2024-06-03] MEDS ORDERED: DOCUSATE SOD 100 MG CAP PO PRN (21:30)
--- NOTE | 2024-06-03 21:41 | DVHHP2 ---
History of Present Illness Reason for Visit: Hypotension, unspecified History of Present Illness Patient is a 68-year-old male with past medical history of angina, CVA, dementia, and seizures who presented to [facility] ED for evaluation of hypotension. As reported by EMS, patient has unwitnessed syncopal episode and was found on the ground. When EMS arrived on the scene, patient was seen sitting down from standing position, developed pale complexion, felt dizzy, blood pressure was 77/51 and was given 1 L of normal saline bolus with improved BP at 109/58 en route to our facility. Patient was seen and evaluated in the ED, laboratory data shows WBC 3.8, platelets 113, hemoglobin 13.5, hematocrit 38.9, sodium 146, potassium 3.5, BUN 21, creatinine 0.85, glucose 85, troponin 6, blood pressure 131/83, heart rate 82, temperature 98.1 F, O2 saturation 98% room air. Chest x-ray revealing cardiomegaly and mild congestion. Please see medicat ion orders section in the computer. On my assessment, patient remains altered, no diaphoresis, no dizziness, no shortness of breath, no nausea, no vomiting, no fever, no chills. Patient was admitted for further evaluation and medical management. Past Medical History Angina, CVA, Dementia, Seizures Past Surgical History No past surgical history on file Family History Reviewed, noncontributory to the management of this case. Past Social History The patient lives at home, denies smoking, alcohol or illicit drugs abuse. Review of Systems Constitutional: Yes: Weakness, Malaise, Other (Fatigue); No: Fever, Chills, Sweats Eyes: No: Pain, Vision change, Conjunctivae inflammation, Eyelid inflammation, Other, Redness ENT: No: Ear pain, Ear discharge, Nose pain, Nose discharge, Nose congestion, Mouth pain, Mouth swelling, Throat pain, Throat swelling, Other Respiratory: No: Cough, Dry, Shortness of breath, SOB with excertion, Wheezing, Hemoptysis, Pleuritic Pain, Sputum, Wheezing, Other Cardiovascular: No: Chest Pain, Palpitations, Orthopnea, Paroxysmal Noc. Dyspnea, Edema, Lt Headedness, Other Genitourinary: No Dysuria, No Frequency, No Incontinence, No Hematuria, No Retention, No Other Musculoskeletal: No: other, neck pain, shoulder pain, arm pain, back pain, hand pain, leg pain, foot pain Skin: No: Rash, Lesions, Jaundice, Bruising, Other Neurological: No: Weakness, Numbness, Incoordination, Change in speech, Confusion, Seizures, Other Allergies: Coded Allergies: NO KNOWN ALLERGIES (Unverified , 12/03/23) Medications Current Medications Medications Dose Ordered Sig/Gabriella Route Start Time Stop Time Status Last Admin Dose Admin Albuterol 2.5 mg Q4HPRN PRN NEB 06/03/24 21:30 UNV Divalproex Sodium 500 mg TID PO 06/03/24 22:00 UNV Sodium Chloride 10 ml Q8HR IV 06/03/24 22:00 UNV Acetaminophen/ Hydrocodone Bitart 1 tab Q4HP PRN PO 06/03/24 21:30 UNV Ondansetron HCl 4 mg Q4HP PRN IV 06/03/24 21:30 UNV Docusate Sodium 100 mg BIDPRN PRN PO 06/03/24 21:30 UNV Acetaminophen 650 mg Q6HP PRN PO 06/03/24 21:30 UNV Exam Vital Signs Vital Signs Date Time Temp Pulse Resp B/P (MAP) Pulse Ox O2 Delivery O2 Flow Rate FiO2 06/03/24 20:00 64 06/03/24 19:00 17 131/83 (99) 98 06/03/24 15:16 98.1 06/03/24 15:10 Room Air* 0 21 General Appearance: Alert, Cooperative, No acute distress, Other (Oriented x2) HEENT: Atraumatic, PERRLA, EOMI, Mucous membr. moist/pink Respiratory: Normal air movement Cardiovascular: Regular rate, Normal S1, Normal S2, No murmurs Abdominal: Normal bowel sounds, Soft, No tenderness, No hepatospenomegaly, No masses Extremities: No clubbing, No cyanosis, No edema, Normal pulses, No tenderness/swelling Skin: No rashes, No breakdown Neuro: Normal speech, Normal tone, Sensation intact, Cranial nerves 3-12 NL, Reflexes 2+, Other (Generalized weakness) Psych/Mental Status: Mood NL, Other (Altered mental status) Labs/Xrays Labs Test 06/03/24 15:20 Range/Units White Blood Count 3.8 L 4.4-10.8 10^3/uL Red Blood Count 4.31 L 4.5-5.90 10^6/uL Hemoglobin 13.5 13.5-17.5 g/dL Hematocrit 38.9 L 41.0-53.0 % Mean Corpuscular Volume 90.1 80.0-100.0 fL Mean Corpuscular Hemoglobin 31.2 28.0-32.0 pg Mean Corpuscular Hemoglobin Concent 34.6 32.0-36.0 g/dL Red Cell Distribution Width 19.9 H 11.8-14.3 % Platelet Count 113 L 140-450 10^3/uL Mean Platelet Volume 7.8 6.9-10.8 fL Neutrophils (%) (Auto) 59.6 37.0-80.0 % Lymphocytes (%) (Auto) 21.7 10.0-50.0 % Monocytes (%) (Auto) 14.0 H 0.0-12.0 % Eosinophils (%) (Auto) 4.2 0.0-7.0 % Basophils (%) (Auto) 0.5 0.0-2.0 % Neutrophils # (Auto) 2.3 1.6-8.6 10 ^3/uL Lymphocytes # (Auto) 0.8 0.4-5.4 10 ^3/uL Monocytes # (Auto) 0.5 0-1.3 10 ^3/uL Eosinophils # (Auto) 0.2 0-0.8 10 ^3/uL Basophils # (Auto) 0 0-0.2 10 ^3/uL Nucleated Red Blood Cells 0.1 % Sodium Level 146 H 136-145 mmol/L Potassium Level 3.5 3.5-5.1 mmol/L Chloride Level 112 H 98-107 mmol/L Carbon Dioxide Level 28 20-31 mmol/L Anion Gap 6 5-15 Blood Urea Nitrogen 21 9-23 mg/dL Creatinine 0.85 0.700-1.30 mg/dL Glomerular Filtration Rate Calc 95 >90 mL/min BUN/Creatinine Ratio 24.7 H 10.0-20.0 Serum Glucose 85 74-106 mg/dL Calcium Level 8.8 8.7-10.4 mg/dL Troponin I High Sensitivity 6 </=54 ng/L PATIENT: NGOZI CURRIE ACCT: [id number] UNIT: [id number] : 1955 LOC: ER ROOM / BED: / AGE / SEX: 68 / M ADM STATUS: REG ER SERVICE 1455 ORDERING PHYSICIAN: LEWIS AVILA MD PROCEDURE(s): CXRP - CHEST PORTABLE REASON: sob ORDER NUMBER(s): [id number], ACCESSION NUMBER(s): [id number] CHEST RADIOGRAPH Indication:sob Technique: Single frontal view of the chest was obtained COMPARISON: XY CHEST XRAY 1 VIEW on DOS: 02/25/24, XY CHEST XRAY 1 VIEW on DOS: 02/24/24, XY CHEST XRAY 1 VIEW on DOS: 02/23/24 FINDINGS: Lines and Tubes: None Lungs: Mild congestion Pleura: No effusion. No pneumothorax. Cardiomediastinal contours: Cardiomegaly Bones: Unremarkable IMPRESSION: Cardiomegaly and mild congestion Assessment/Plan Assessment/Plan Hypotension Cardiomegaly Altered mental status Dehydration Hypotension, unspecified Generalized weakness Plan 1. Admit to telemetry unit 2. Breathing treatment 3. Pain control management 4. Management of fluids and electrolytes 5. Consultation for hospitalist 6. Diagnostic tests chest x-ray 7. DVT prophylaxis on SCDs 8. Repeat labs CBC, CMP in a.m. 9. Continue with current medical management 10. Treatment plan discussed with patient and RN. Patient will need reinstatement of information given mental status. Plan discussed with: Patient, Other (RN) My Orders Orders - ADRIANNA JACOB DNP Procedure Category Date Status Time Albuterol Medneb PHA 06/03/24 Logged (Ventolin Medneb) 21:[address] Tablet PHA 06/03/24 Logged (Depakote "Dr" Tabl 22:00 Allergies JANICE 06/03/24 In Process 21:20 Code Status CODE 06/03/24 Transmitted 21:20 Sodium Chloride Lock PHA 06/03/24 Logged (Saline Lock Ns) 22:00 Oxygen Per Hour RT 06/03/24 Transmitted 21:20 Hydrocodone-Acet PHA 06/03/24 Logged 5/325mg Tab ([place] 21:30 Ondansetron Hcl PHA 06/03/24 Logged (Zofran) 21:30 Docusate Sodium PHA 06/03/24 Logged Capsule (Colace 21:30 Fall Risk Precautions JANICE 06/03/[address] 21:20 Complete Blood Count LAB 06/04/24 Verified 04:00 Comprehensive LAB 06/04/24 Verified Metabolic Panel 04:00 Cardiac DIET 06/04/24 Transmitted Diet-2gna,Lofat,Lochol Breakfast Condition: Serious JANICE 06/03/24 In Process 21:20 Acetaminophen Tablet PHA 06/03/24 Logged (Tylenol Tablet) 21:30 Sequential JANICE 06/03/24 In Process Compression Device Problem List: (1) Hypotension (2) Cardiomegaly (3) Dehydration (4) Hypotension, unspecified (5) Altered mental status (6) Generalized weakness Date of Service: Jun 03, 2024 Billing Provider: ADRIANNA JACOB DNP Common Visit Codes: [id number] INP/OBS CARE (HIGH) ADRIANNA JACOB DNP Jun 03, 2024 21:41
[2024-06-03] MEDS ORDERED: MORPHINE SULFATE INJ 2 MG/ml SYRG IV PRN (21:45)
[2024-06-03] MEDS ORDERED: NITROGLYCERIN 0.4 MG SL TAB SL PRN (21:45)
[2024-06-03 22:00] VITALS: BP 131/83; PULSE 73; RESP 13; TEMP 98.1; O2SAT 96
[2024-06-03] MEDS: HYDROcodone-ACET 5/325MG TAB PO PRN (23:56)
[2024-06-03] MEDS: SODIUM CHLOR 0.9% PF (SALINE LOCK) 10ML VIAL/SYR IV SCH (23:57)
[2024-06-04 06:16] LABS: Basophils # (auto) 0 10 ^3/uL (0-0.2); Basophils % (auto) 0.3 % (0.0-2.0); Eosinophils # (auto) 0.2 10 ^3/uL (0-0.8); Eosinophils % (auto) 3.9 % (0.0-7.0); Hematocrit 39.5 % (41.0-53.0); Hemoglobin 13.2 g/dL (13.5-17.5); Lymphocytes # (auto) 1.9 10 ^3/uL (0.4-5.4); Lymphocytes % (auto) 40.2 % (10.0-50.0); Mean Corpuscular Hemoglobin 30.3 pg (28.0-32.0); Mean Corpuscular Hgb Conc. 33.4 g/dL (32.0-36.0); Mean Corpuscular Volume 90.6 fL (80.0-100.0); Monocytes # (auto) 0.5 10 ^3/uL (0-1.3); Monocytes % (auto) 10.2 % (0.0-12.0); Neutrophils # (auto) 2.1 10 ^3/uL (1.6-8.6); Neutrophils % (auto) 45.4 % (37.0-80.0); Nucleated Red Blood Cells % 0.2 %; Platelet Count (auto) 117 10^3/uL (140-450); Red Blood Cells 4.36 10^6/uL (4.5-5.90); Red Cell Distribution Width 19.8 % (11.8-14.3); White Blood Cell 4.6 10^3/uL (4.4-10.8)
[2024-06-04 06:26] LABS: Albumin 3.1 g/dL (3.2-4.8); Alkaline Phosphatase 68 U/L (46-116); Anion Gap 6 (5-15); Aspartate Aminotransferase < 8 U/L (13-40); BUN/Creatinine Ratio 28.8 (10.0-20.0); Bilirubin, Total 0.5 mg/dL (0.2-1.0); Blood Urea Nitrogen 19 mg/dL (9-23); Calcium 9.1 mg/dL (8.7-10.4); Carbon Dioxide 25 mmol/L (20-31); Chloride 112 mmol/L (98-107); Glucose 73 mg/dL (74-106); Sodium 143 mmol/L (136-145); Total Protein 5.9 g/dL (5.7-8.2)
[2024-06-04 06:32] LABS: Alanine Aminotransferase < 9 U/L (7-40)
[2024-06-04 08:00] VITALS: PULSE 62; RESP 10; O2SAT 97
--- NOTE | 2024-06-04 13:07 | DVHPN2 ---
Reviewed: Care Plan, H&P, Labs, Medications, Previous Orders, Radiology Changes from previous H/P or p: No Changes Eyes: No Pain, No Vision change, No Conjunctivae inflammation, No Eyelid inflammation, No Other, No Redness ENT: No Ear pain, No Ear discharge, No Nose pain, No Nose discharge, No Nose congestion, No Mouth pain, No Mouth swelling, No Throat pain, No Throat swelling, No Other Cardiovascular: No Chest Pain, No Palpitations, No Orthopnea, No Paroxysmal Noc. Dyspnea, No Edema, No Lt Headedness, No Other Respiratory: No Cough, No Dry, No Shortness of breath, No SOB with excertion, No Wheezing, No Hemoptysis, No Pleuritic Pain, No Sputum, No Other Genitourinary: No Dysuria, No Frequency, No Incontinence, No Hematuria, No Retention, No Other Musculoskeletal: No other, No neck pain, No shoulder pain, No arm pain, No back pain, No hand pain, No leg pain, No foot pain Skin: No Rash, No Lesions, No Jaundice, No Bruising, No Other Objective Vitals Vital Signs Date Time Temp Pulse Resp B/P (MAP) Pulse Ox O2 Delivery O2 Flow Rate FiO2 06/04/24 08:00 62 10 97 Room Air* 0 21 06/04/24 08:00 98.1 157/70 (99) 98.1 Intake/Output Intake and Output 06/04/24 07:00 Intake Total 1000 ml Balance 1000 ml Intake IV Total 1000 ml Medications Current Medications Medications Dose Ordered Sig/Gabriella Route Start Time Stop Time Status Last Admin Dose Admin Albuterol 2.5 mg Q4HPRN PRN NEB 06/03/24 21:30 Divalproex Sodium 500 mg TID PO 06/03/24 22:00 06/04/24 06:00 500 MG Sodium Chloride 10 ml Q8HR IV 06/03/24 22:00 06/04/24 06:00 10 ML Acetaminophen/ Hydrocodone Bitart 1 tab Q4HP PRN PO 06/03/24 21:30 06/03/24 23:56 1 TAB Ondansetron HCl 4 mg Q4HP PRN IV 06/03/24 21:30 Docusate Sodium 100 mg BIDPRN PRN PO 06/03/24 21:30 Acetaminophen 650 mg Q6HP PRN PO 06/03/24 21:30 Nitroglycerin 0.4 mg Q5MINP PRN SL 06/03/24 21:45 Morphine Sulfate 2 mg Q30M PRN IV 06/03/24 21:45 Laboratory Results Laboratory Tests 06/04/24 04:54 Chemistry Test 06/03/24 15:20 06/04/24 04:54 Calcium Level 8.8 mg/dL (8.7-10.4) 9.1 mg/dL (8.7-10.4) Albumin 3.1 g/dL (3.2-4.8) L Total Protein 5.9 g/dL (5.7-8.2) LFT Test 06/04/24 04:54 Alanine Aminotransferase (ALT) < 9 U/L (7-40) Alkaline Phosphatase 68 U/L (46-116) Aspartate Amino Transferase (AST) < 8 U/L (13-40) L Total Bilirubin 0.5 mg/dL (0.2-1.0) Labs and/or images reviewed: Labs reviewed by me, Image(s) reviewed by me Assessment/Plan Assessment/Plan Acute hypotension Dehydration IV fluids Cardiomegaly Acute generalized weakness History of seizures: Depakote Acute metabolic encephalopathy History of spontaneous pneumothorax Asymptomatic cholelithiasis Grade 1 diastolic congestive heart failure next one schizoaffective disorder History of CVA Patient came from [facility] Time spent 45 minutes Patient is full code Advanced care planning time 20 minutes Plan discussed with: Patient Date of Service: Jun 04, 2024 Billing Provider: ADELINE SEO MD Common Visit Codes: [id number] INP/OBS CARE(HIGH) ADELINE SEO MD Jun 04, 2024 13:07
--- NOTE | 2024-06-04 13:53 | DVH ---
EXAM: CT HEAD WITHOUT CONTRAST INDICATION: ALOC TECHNIQUE: CT of the head without intravenous contrast. Radiation Dose : 1. Head: CT Dose: CTDI volume is 65.1 mGy. Dose-length product is 912 mGy*cm The dose indicators for CT are the volume Computed Tomography (CT) Dose Index (CTDIvol) and the Dose Length Product (DLP), and are measured in units of mGy and mGy-cm, respectively. These indicators are not patient dose, but values generated from the CT scanner acquisition factors. The report includes radiation exposure data for exposures received during this examination. COMPARISON: CT CHEST WITHOUT CONTRAST on DOS: 02/19/24, CT CHEST WITHOUT CONTRAST on DOS: 02/18/24, MRI BRAIN HEAD WO CONTRAST on DOS: 12/04/23 FINDINGS: There is no evidence of acute intracranial hemorrhage, extra-axial collection, mass effect, midline s hift, herniation or hydrocephalus. The ventricles, sulci and cisterns are age appropriate. The perez-white differentiation is intact. Patchy periventricular and subcortical white matter hypoattenuation is nonspecific but may be related to small vessel ischemic disease. The visualized paranasal sinuses and mastoid air cells are clear. The surrounding soft tissues and osseous structures are unremarkable. IMPRESSION: No acute intracranial abnormality. Radiation optimization: All CT scans at this facility use at least one of these dose optimization tali hniques: automated exposure control mA and/or kV adjustment per patient size (includes targeted exam s where dose is matched to clinical indication) or iterative reconstruction.
[2024-06-04] MEDS: SODIUM CHLORIDE 0.9% 1,000 ML IV ONE (14:07)
[2024-06-04 15:01] VITALS: O2SAT 95
[2024-06-04 15:21] LABS: Urine Bacteria FEW /hpf (None Seen); Urine Blood 3+ /uL (Negative); Urine Clarity Turbid (Clear); Urine Color Yellow (Yellow); Urine Mucus FEW (None Seen); Urine Protein, UAD 2+ (Negative); Urine Urobilinogen 2 mg/dL (Negative); Urine WBC 28 /hpf (0 - 3)
[2024-06-04 17:00] VITALS: BP 118/79; PULSE 59; RESP 16; TEMP 97.5; O2SAT 92
[2024-06-04 20:00] VITALS: PULSE 79
[2024-06-04 20:34] VITALS: O2SAT 96
[2024-06-04 21:00] VITALS: BP 136/81; PULSE 72; RESP 18; TEMP 97.5; O2SAT 96
[2024-06-05] VITALS (9 sets, daily range): BP systolic 103–153; BP diastolic 62–76; PULSE 51–80; RESP 17–18; TEMP 97.5–98.1; O2SAT 96–99
--- NOTE | 2024-06-05 09:26 | DVHPN2 ---
Reviewed: Care Plan, H&P, Labs, Medications, Previous Orders, Radiology Changes from previous H/P or p: No Changes Eyes: No Pain, No Vision change, No Conjunctivae inflammation, No Eyelid inflammation, No Other, No Redness ENT: No Ear pain, No Ear discharge, No Nose pain, No Nose discharge, No Nose congestion, No Mouth pain, No Mouth swelling, No Throat pain, No Throat swelling, No Other Cardiovascular: No Chest Pain, No Palpitations, No Orthopnea, No Paroxysmal Noc. Dyspnea, No Edema, No Lt Headedness, No Other Respiratory: No Cough, No Dry, No Shortness of breath, No SOB with excertion, No Wheezing, No Hemoptysis, No Pleuritic Pain, No Sputum, No Other Genitourinary: No Dysuria, No Frequency, No Incontinence, No Hematuria, No Retention, No Other Musculoskeletal: No other, No neck pain, No shoulder pain, No arm pain, No back pain, No hand pain, No leg pain, No foot pain Skin: No Rash, No Lesions, No Jaundice, No Bruising, No Other Objective Vitals Vital Signs Date Time Temp Pulse Resp B/P (MAP) Pulse Ox O2 Delivery O2 Flow Rate FiO2 06/05/24 07:34 Room Air* 0 21 06/05/24 07:01 98 06/05/24 05:00 97.7 62 18 153/76 (101) 97.7 Intake/Output Intake and Output 06/05/24 07:00 Intake Total 880 ml Output Total 825 ml Balance 55 ml Intake Oral 880 ml Output Urine Total 825 ml Medications Current Medications Medications Dose Ordered Sig/Gabriella Route Start Time Stop Time Status Last Admin Dose Admin Albuterol 2.5 mg Q4HPRN PRN NEB 06/03/24 21:30 Divalproex Sodium 500 mg TID PO 06/03/24 22:00 06/05/24 06:12 500 MG Sodium Chloride 10 ml Q8HR IV 06/03/24 22:00 06/05/24 06:13 10 ML Acetaminophen/ Hydrocodone Bitart 1 tab Q4HP PRN PO 06/03/24 21:30 06/03/24 23:56 1 TAB Ondansetron HCl 4 mg Q4HP PRN IV 06/03/24 21:30 Docusate Sodium 100 mg BIDPRN PRN PO 06/03/24 21:30 Acetaminophen 650 mg Q6HP PRN PO 06/03/24 21:30 Nitroglycerin 0.4 mg Q5MINP PRN SL 06/03/24 21:45 Morphine Sulfate 2 mg Q30M PRN IV 06/03/24 21:45 Laboratory Results Laboratory Tests 06/04/24 04:54 Urinalysis Test 06/04/24 14:12 Urine Color Yellow (Yellow) Urine Clarity Turbid (Clear) H Urine pH 6.0 (5.0-9.0) Urine Specific [place] 1.030 (1.001-1.035) Urine Protein 2+ (Negative) H Urine Ketones 1+ (Negative) H Urine Blood 3+ /uL (Negative) H Urine Nitrite Negative (Negative) Urine Bilirubin Negative (Negative) Urine Urobilinogen 2 mg/dL (Negative) H Urine Leukocyte Esterase 2+ /uL (Negative) Urine RBC 464 /hpf (0 - 3) Urine WBC 28 /hpf (0 - 3) Urine Squamous Epithelial Cells Few /hpf (<5) Urine Bacteria Few /hpf (None Seen) H Urine Mucus Few (None Seen) Urine Glucose Normal mg/dL (Normal) Labs and/or images reviewed: Labs reviewed by me, Image(s) reviewed by me Assessment/Plan Assessment/Plan Acute hypotension Dehydration IV fluids Cardiomegaly Acute generalized weakness History of seizures: Depakote Acute metabolic encephalopathy History of spontaneous pneumothorax Asymptomatic cholelithiasis Grade 1 diastolic congestive heart failure next one schizoaffective disorder History of CVA Patient came from [facility] Time spent 45 minutes Patient is full code Advanced care planning time 20 minutes Plan discussed with: Patient My Orders Orders - ADELINE SEO MD Procedure Category Date Status Time Head Without Contrast CT 06/04/24 Resulted 13:17 Mrsa Screen IVONE 06/04/24 Uncollected 17:19 * Marine Service Operator CONS 06/04/24 Transmitted Consult 17:19 Date of Service: Jun 05, 2024 Billing Provider: ADELINE SEO MD Common Visit Codes: [id number] INP/OBS CARE(HIGH) ADELINE SEO MD Jun 05, 2024 09:26
[2024-06-06] VITALS (8 sets, daily range): BP systolic 100–136; BP diastolic 63–79; PULSE 53–65; RESP 15–18; TEMP 97–97.5; O2SAT 96–99
--- NOTE | 2024-06-06 10:50 | DVHPN2 ---
Reviewed: Care Plan, H&P, Labs, Medications, Previous Orders, Radiology Changes from previous H/P or p: No Changes Eyes: No Pain, No Vision change, No Conjunctivae inflammation, No Eyelid inflammation, No Other, No Redness ENT: No Ear pain, No Ear discharge, No Nose pain, No Nose discharge, No Nose congestion, No Mouth pain, No Mouth swelling, No Throat pain, No Throat swelling, No Other Cardiovascular: No Chest Pain, No Palpitations, No Orthopnea, No Paroxysmal Noc. Dyspnea, No Edema, No Lt Headedness, No Other Respiratory: No Cough, No Dry, No Shortness of breath, No SOB with excertion, No Wheezing, No Hemoptysis, No Pleuritic Pain, No Sputum, No Other Genitourinary: No Dysuria, No Frequency, No Incontinence, No Hematuria, No Retention, No Other Musculoskeletal: No other, No neck pain, No shoulder pain, No arm pain, No back pain, No hand pain, No leg pain, No foot pain Skin: No Rash, No Lesions, No Jaundice, No Bruising, No Other Objective Vitals Vital Signs Date Time Temp Pulse Resp B/P (MAP) Pulse Ox O2 Delivery O2 Flow Rate FiO2 06/06/24 09:00 97.1 58 15 111/75 (87) 98 97.1 06/05/24 20:00 Room Air* 0 21 Intake/Output Intake and Output 06/06/24 07:00 Intake Total 1232 ml Output Total 300 ml Balance 932 ml Intake Oral 1232 ml Output Urine Total 300 ml Medications Current Medications Medications Dose Ordered Sig/Gabriella Route Start Time Stop Time Status Last Admin Dose Admin Divalproex Sodium 500 mg TID PO 06/03/24 22:00 06/06/24 05:19 500 MG Sodium Chloride 10 ml Q8HR IV 06/03/24 22:00 06/06/24 05:19 10 ML Acetaminophen/ Hydrocodone Bitart 1 tab Q4HP PRN PO 06/03/24 21:30 06/03/24 23:56 1 TAB Ondansetron HCl 4 mg Q4HP PRN IV 06/03/24 21:30 Docusate Sodium 100 mg BIDPRN PRN PO 06/03/24 21:30 Acetaminophen 650 mg Q6HP PRN PO 06/03/24 21:30 Nitroglycerin 0.4 mg Q5MINP PRN SL 06/03/24 21:45 Morphine Sulfate 2 mg Q30M PRN IV 06/03/24 21:45 Laboratory Results Laboratory Tests 06/04/24 04:54 Urinalysis Test 06/04/24 14:12 Urine Color Yellow (Yellow) Urine Clarity Turbid (Clear) H Urine pH 6.0 (5.0-9.0) Urine Specific [place] 1.030 (1.001-1.035) Urine Protein 2+ (Negative) H Urine Ketones 1+ (Negative) H Urine Blood 3+ /uL (Negative) H Urine Nitrite Negative (Negative) Urine Bilirubin Negative (Negative) Urine Urobilinogen 2 mg/dL (Negative) H Urine Leukocyte Esterase 2+ /uL (Negative) Urine RBC 464 /hpf (0 - 3) Urine WBC 28 /hpf (0 - 3) Urine Squamous Epithelial Cells Few /hpf (<5) Urine Bacteria Few /hpf (None Seen) H Urine Mucus Few (None Seen) Urine Glucose Normal mg/dL (Normal) Labs and/or images reviewed: Labs reviewed by me, Image(s) reviewed by me Assessment/Plan Assessment/Plan Acute hypotension improved Dehydration IV fluids Cardiomegaly Acute generalized weakness History of seizures: Depakote Acute metabolic encephalopathy History of spontaneous pneumothorax Asymptomatic cholelithiasis Grade 1 diastolic congestive heart failure next one schizoaffective disorder History of CVA Patient came from [facility] Time spent 45 minutes Patient is full code Plan discussed with: Patient Date of Service: Jun 06, 2024 Billing Provider: ADELINE SEO MD Common Visit Codes: [id number] INP/OBS CARE(HIGH) ADELINE SEO MD Jun 06, 2024 10:50
[2024-06-07 01:00] VITALS: BP 104/62; PULSE 58; RESP 18; TEMP 97.5; O2SAT 97
[2024-06-07 05:00] VITALS: BP 112/63; PULSE 55; RESP 18; TEMP 97.5; O2SAT 98
[2024-06-07 08:00] VITALS: PULSE 60
[2024-06-07 09:00] VITALS: BP 114/71; PULSE 60; RESP 16; TEMP 98.1; O2SAT 96
--- NOTE | 2024-06-07 11:01 | DVHDS2 ---
Discharge Summary Date of Admission Jun 03, 2024 at 21:40 Date of Discharge: Jun 07, 2024 Admitting Diagnosis Generalized weakness and altered mental status Wounds: None Labs/Diagnostic Data: Laboratory Results Test 06/04/24 14:12 06/04/24 04:54 06/03/24 15:20 Urine Color Yellow (Yellow) Urine Clarity Turbid (Clear) Urine pH 6.0 (5.0-9.0) Urine Specific [place] 1.030 (1.001-1.035) Urine Protein 2+ (Negative) Urine Ketones 1+ (Negative) Urine Blood 3+ /uL (Negative) Urine Nitrite Negative (Negative) Urine Bilirubin Negative (Negative) Urine Urobilinogen 2 mg/dL (Negative) Urine Leukocyte Esterase 2+ /uL (Negative) Urine RBC 464 /hpf (0 - 3) Urine WBC 28 /hpf (0 - 3) Urine Squamous Epithelial Cells Few /hpf (<5) Urine Bacteria Few /hpf (None Seen) Urine Mucus Few (None Seen) Urine Glucose Normal mg/dL (Normal) White Blood Count 4.6 10^3/uL (4.4-10.8) Red Blood Count 4.36 10^6/uL (4.5-5.90) Hemoglobin 13.2 g/dL (13.5-17.5) Hematocrit 39.5 % (41.0-53.0) Mean Corpuscular Volume 90.6 fL (80.0-100.0) Mean Corpuscular Hemoglobin 30.3 pg (28.0-32.0) Mean Corpuscular Hemoglobin Concent 33.4 g/dL (32.0-36.0) Red Cell Distribution Width 19.8 % (11.8-14.3) Platelet Count 117 10^3/uL (140-450) Mean Platelet Volume 7.9 fL (6.9-10.8) Neutrophils (%) (Auto) 45.4 % (37.0-80.0) Lymphocytes (%) (Auto) 40.2 % (10.0-50.0) Monocytes (%) (Auto) 10.2 % (0.0-12.0) Eosinophils (%) (Auto) 3.9 % (0.0-7.0) Basophils (%) (Auto) 0.3 % (0.0-2.0) Neutrophils # (Auto) 2.1 10 ^3/uL (1.6-8.6) Lymphocytes # (Auto) 1.9 10 ^3/uL (0.4-5.4) Monocytes # (Auto) 0.5 10 ^3/uL (0-1.3) Eosinophils # (Auto) 0.2 10 ^3/uL (0-0.8) Basophils # (Auto) 0 10 ^3/uL (0-0.2) Nucleated Red Blood Cells 0.2 % Sodium Level 143 mmol/L (136-145) Potassium Level 4.0 mmol/L (3.5-5.1) Chloride Level 112 mmol/L (98-107) Carbon Dioxide Level 25 mmol/L (20-31) Anion Gap 6 (5-15) Blood Urea Nitrogen 19 mg/dL (9-23) Creatinine 0.66 mg/dL (0.700-1.30) Glomerular Filtration Rate Calc 103 mL/min (>90) BUN/Creatinine Ratio 28.8 (10.0-20.0) Serum Glucose 73 mg/dL (74-106) Calcium Level 9.1 mg/dL (8.7-10.4) Total Bilirubin 0.5 mg/dL (0.2-1.0) Aspartate Amino Transferase (AST) < 8 U/L (13-40) Alanine Aminotransferase (ALT) < 9 U/L (7-40) Alkaline Phosphatase 68 U/L (46-116) Total Protein 5.9 g/dL (5.7-8.2) Albumin 3.1 g/dL (3.2-4.8) Troponin I High Sensitivity 6 ng/L (</=54) Other Laboratory Tests 06/04/24 04:54 Brief Hx & Hospital Course: 68-year-old male with a history of dementia seizures history of previous spontaneous pneumothorax history of CVA chronic bedridden burden from intermediate for altered mental status low blood pressure and confusion. Found to be in acute hypotension which has improved with IV fluids patient has had dehydration. Started back on Depakote for his seizures CT abdomen pelvis with contrast showed asymptomatic cholelithiasis patient also has a history of grade 1 diastolic congestive heart failure and schizoaffective disorder patient has marginally improved with IV fluids and received physical therapy being discharged back to [facility] facility for rehab. Patient is intermittently confused secondary to previous CVA and dementia. General condition poor. Prognosis poor. Consults/Reason for consult None Operations or Procedures CT head Condition at Discharge: Fair Final Diagnosis/Problems List Acute hypotension improved Dehydration IV fluids Cardiomegaly Acute generalized weakness History of seizures: Depakote Acute metabolic encephalopathy History of spontaneous pneumothorax Asymptomatic cholelithiasis Grade 1 diastolic congestive heart failure next one schizoaffective disorder History of CVA [facility] Discharge Instruct/Medications Diet: Regular Activity: Bed rest Follow Up/Referral: Follow up with the intermediate Medications: see list 35 (Time taken for discharge summary 35 minutes) Discharge Statement: "Patient was advised to return to the ER or call 911 if any headaches, dizziness, shortness of breath, chest pain, abdominal pain, bleeding, fevers, or worsening of medical condition. Patient was counseled about treatment plan, medications, possible side effects, patientverbalized understanding. All questions were answered to the best of my ability. This discharge took greater then 30 minutes in planning, reviewing documentation, counseling the patient, and discussing with other team members." ASSESSMENT ASSESSMENT Hospital Course Marginally improved Assessment Acute hypotension improved Dehydration IV fluids Cardiomegaly Acute generalized weakness History of seizures: Depakote Acute metabolic encephalopathy History of spontaneous pneumothorax Asymptomatic cholelithiasis Grade 1 diastolic congestive heart failure next one schizoaffective disorder History of CVA Date of Service: Jun 07, 2024 Billing Provider: ADELINE SEO MD Common Visit Codes: [id number] DISCH DAY >30min ADELINE SEO MD Jun 07, 2024 11:01
[2024-06-07 13:00] VITALS: BP 99/61; PULSE 59; RESP 16; TEMP 98.3; O2SAT 97
[2024-06-07 13:14] VITALS: BP 99/61; PULSE 59; RESP 16; TEMP 98.3; O2SAT 97
[2024-06-07 21:24] LABS: COVID19 ANTIGEN SOFIA FIA NEGATIVE (NEGATIVE)
== END 2024-06-07 19:05 | DRG 640 ==
LOC: EDBD 14:44 → ER 14:46 → TELE 21:40 → TELE-EAST 06-04 15:29
PROVIDERS: ADMIT Nurse Practitioner Family; ATTEND Family Medicine
DX: E86.0 Dehydration (principal); G93.41 Metabolic encephalopathy; I50.30 Unspecified diastolic (congestive) heart failure; D64.9 Anemia, unspecified; I51.7 Cardiomegaly; F03.90 Unspecified dementia, unspecified severity, without behavioral disturbance, psychotic disturbance, mood disturbance, and anxiety; Z20.822 Contact with and (suspected) exposure to COVID-19; K80.20 Calculus of gallbladder without cholecystitis without obstruction; F25.9 Schizoaffective disorder, unspecified; I95.9 Hypotension, unspecified; Z86.73 Personal history of transient ischemic attack (TIA), and cerebral infarction without residual deficits; Z74.01 Bed confinement status
CPT/HCPCS: 36415; 70450; 71045; 80048; 80053; 81001; 84484; 85025; 87081; 87426; 93005; 97163; 99291; G0378

== ENCOUNTER 2025-07-09 15:49 | Inpatient (IN) | payer OTHER, MEDICARE, MEDICAID ==
[~2025-07-09] VITALS: Ht 180.3 cm; Wt 76.7 kg
[2025-07-09] MEDS: LORazepam 2MG/ML-1ML VIAL IV ONE ×2 (16:35→21:54)
[2025-07-09] MEDS: LORazepam 2MG/ML-1ML VIAL ONE (16:56)
[2025-07-09 16:57] VITALS: PULSE 89; RESP 18; O2SAT 99
--- NOTE | 2025-07-09 19:08 | ED.PDOC ---
History of Present Illness HPI Comments 70-year-old male who came to ER via EMS for fall injury. Per EMS, [facility], had an unwitnessed fall so patient was brought to the ER for evaluation. Patient claims that he slipped on a a piece of rubber and he fell backwards hitting the back of his head. Upon arrival of the ER, patient became aggressive, agitated, started spitting at staff members, so patient was placed on four-point restraints. Chief Complaint: Fall Injury Time Seen by MD: 19:08 Primary Care Provider: UNKNOWN Reviewed Notes: Nurses Notes Allergies: Coded Allergies: NO KNOWN ALLERGIES (Unverified , 12/03/23) Home Meds Reported Medications Atorvastatin Calcium (ATORVASTATIN CALCIUM) 20 Mg Tab, 1 TAB PO DAILY 07/10/25 Lorazepam (ATIVAN TABLET) 0.5 Mg Tb, 1 TAB PO Q8HPRN, #90 TAB 12/04/23 Ipratropium-Albuterol (COMBIVENT RESPIMAT) Respimat Aer, 1 IN, AER 12/04/23 Albuterol Sulfate (VENTOLIN MDI) 90 Mcg Ih, 90 MCG IN PRN, INH 12/04/23 Spironolactone (Spironolactone) 25 Mg Tab, 1 TAB PO DAILY, #90 TAB 1 Refill 12/04/23 Risperidone (RisperDAL TABLET) 1 Mg Tb, 3 TAB PO DAILY, #30 TAB 1 Refill 12/04/23 Quetiapine Fumerate (QUETIAPINE FUMARATE) 25 Mg Tab, 25 MG PO BID, TAB 12/04/23 Melatonin (KP MELATONIN) 3 Mg Tab, 1 TAB PO QPM, #30 TAB 2 Refills 12/04/23 Latanoprost (LATANOPROST) 0.005 % Kimani, 1 DROP EACHEYE QPM, #7.5 ML 3 Refills 12/04/23 Jbfqurkzejc-Nijvfvrfibh-Hps C- (Glucosamine Chondroitin) 1 Cap Cap, 1 CAP PO TID, CAP 12/04/23 Ufpunnmajqr-Wlownzbwoyv-Cck C- (Glucosamine Chondroitin) Tab, 1 OR, TAB 12/04/23 Dorzolamide-Timolol (Dorzolamide Hcl/Timolol M) 1 Ml Kimani, 1 DROP EACHEYE BID, #10 ML 6 Refills 12/04/23 Divalproex Sodium (Divalproex Sodium Dr) 500 Mg Tab, 1 TAB PO TID, #60 TAB 1 Refill 12/04/23 Brimonidine Tartrate-Timolol M (Brimonidine Tartrate/Josr 0.2-0.5 %) 1 Kimani Kimani, 1 KIMANI OP, ML 12/04/23 Benazepril & Hydrochlorothiazi (Benazepril Hydrochloride/ 10-12.5 mg) 1 Tab Tab, 1 TAB PO, TAB 12/04/23 Amlodipine Besylate (NORVASC TABLET) 5 Mg Tb, 2.5 MG PO, TAB 12/04/23 Fluticasone-Salmeterol (Advair Diskus 250/50) 1 Puff Ih, 1 PUFF INH BID, #3 INHALER 3 Refills 12/04/23 Information Source: Patient, Emergency Med Personnel Mode of Arrival: EMS Past Medical History PAST MEDICAL HISTORY: Angina, CVA, Dementia, Schizophrenia, Seizures Surgical History: Denies all surgeries Family History Family History: Reviewed,noncontributory to illness Social History Smoker: Non-Smoker Alcohol: Denies ETOH Use Drugs: Denies Drug Use Lives In: Residential Constitutional: denies: chills, diaphoresis, fatigue, fever, malaise, sweats, weakness, others EENTM: denies: blurred vision, double vision, ear bleeding, ear discharge, ear drainage, ear pain, ear ringing, eye pain, eye redness, hearing loss, mouth pain, mouth swelling, nasal discharge, nose bleeding, nose congestion, nose pain, photophobia, tearing, throat pain, throat swelling, voice changes, others Respiratory: denies: cough, hemoptysis, orthopnea, SOB at rest, shortness of breath, SOB with excertion, stridor, wheezing, others Cardiovascular: denies: chest pain, dizzy spells, diaphoresis, Dyspnea on exertion, edema, irregular heart beat, left arm pain, lightheadedness, palpitations, PND, syncope, others Gastrointestinal: denies: abdomen distended, abdominal pain, blood streaked bowels, constipated, diarrhea, dysphagia, difficulty swallowing, hematemesis, melena, nausea, poor appetite, poor fluid intake, rectal bleeding, rectal pain, vomiting, others Genitourinary: denies: burning, dysuria, flank pain, frequency, hematuria, incontinence, penile discharge, penile sore, pain, testicle pain, testicle swelling, urgency, others Neurological: reports: headache; denies: dizziness, fainting, left sided numbness, left sided weakness, numbness, paresthesia, pre-existing deficit, right sided numbness, right sided weakness, seizure, speech problems, tingling, tremors, weakness, others Musculoskeletal: denies: back pain, gout, joint pain, joint swelling, muscle pain, muscle stiffness, neck pain, others Integumetry: denies: bruises, change in color, change in hair/nails, dryness, laceration, lesions, lumps, rash, wounds, others Allergic/Immunocompromised: denies: Difficulty Healing, Frequent Infections, Hives, Itching, others Endocrine: denies: excessive hunger, excessive sweating, excessive thirst, excessive urination, flushing, intolerance to cold, intolerance to heat, unexplained weight gain, unexplained weight loss, others Psychiatric: reports: schizophrenia; denies: anxiety, bipolar disorder, depression, hopeless, panic disorder, sleepless, suicidal, others Physical Exam General Appearance: No Apparent Distress, Normal HEENT: Normal ENT Inspection, Pharynx Normal, TMs Normal Neck: Full Range of Motion, Non-Tender, Normal, Normal Inspection Respiratory: Chest Non-Tender, Lungs Clear, No Accessory Muscle Use, No Respiratory Distress, Normal Breath Sounds Cardiovascular: No Edema, No JVD, No Murmur, No Gallop, Normal Peripheral Pulses, Regular Rate/Rhythm Breast Exam: Deferred Gastrointestinal: No Organomegaly, Non Tender, No Pulsatile Mass, Normal Bowel Sounds, Soft Genitalia: Deferred Pelvic: Deferred Rectal: Deferred Extremities: No calf tenderness, Normal capillary refill, Normal inspection, Normal range of motion, Non-tender, No pedal edema Musculoskeletal : Apperance: Normal Neurologic: Alert, sports management professor II-XII nml as Tested, No Motor Deficits, Normal Affect, Normal Mood, No Sensory Deficits Cerebellar Function: Normal Reflexes: Normal Skin: Dry, Normal Color, Warm Lymphatic: No Adenopathy Was a procedure done? Was a procedure done?: No Differential Dx Considerations may include: Anemia, electrolyte imbalance, head injury, fall injury, schizophrenia X-Ray, Labs, Meds, VS Vital Signs Date Time Temp Pulse Resp B/P (MAP) Pulse Ox O2 Delivery O2 Flow Rate FiO2 12/14/25 07:49 98.8 07/10/25 07:26 70 14 98 Room Air* 0 21 07/10/25 07:26 98.8 70 14 123/55 (77) 98 98.8 07/10/25 06:50 100.1 07/10/25 06:41 100.1 62 12 123/49 (73) 95 100.1 07/10/25 02:01 63 16 163/76 (105) 97 07/10/25 01:01 53 15 159/82 (107) 99 07/10/25 00:00 55 17 151/77 (101) 99 07/09/25 23:01 54 16 154/68 (96) 07/09/25 22:00 56 13 157/81 (106) 99 07/09/25 20:01 65 17 172/93 (119) 99 07/09/25 19:46 99 Room Air* 0 21 07/09/25 19:46 97.4 97 11 167/82 (110) 98 97.4 07/09/25 19:00 60 10 156/93 (114) 99 07/09/25 18:00 64 12 160/85 (110) 99 07/09/25 17:00 65 11 159/84 (109) 96 07/09/25 16:57 89 18 99 Room Air* 0 07/09/25 16:48 97.3 74 18 151/87 (108) 99 97.3 07/09/25 15:50 97.6 68 16 121/80 99 97.6 Lab Test 07/10/25 07:21 Range/Units White Blood Count 4.7 4.4-10.8 10^3/uL Red Blood Count 4.47 L 4.5-5.90 10^6/uL Hemoglobin 13.8 13.5-17.5 g/dL Hematocrit 41.3 41.0-53.0 % Mean Corpuscular Volume 92.3 80.0-100.0 fL Mean Corpuscular Hemoglobin 30.9 28.0-32.0 pg Mean Corpuscular Hemoglobin Concent 33.4 32.0-36.0 g/dL Red Cell Distribution Width 16.5 H 11.8-14.3 % Platelet Count 110 L 140-450 10^3/uL Mean Platelet Volume 8.5 6.9-10.8 fL Neutrophils (%) (Auto) 73.7 37.0-80.0 % Lymphocytes (%) (Auto) 13.1 10.0-50.0 % Monocytes (%) (Auto) 11.0 0.0-12.0 % Eosinophils (%) (Auto) 1.9 0.0-7.0 % Basophils (%) (Auto) 0.3 0.0-2.0 % Neutrophils # (Auto) 3.4 1.6-8.6 10 ^3/uL Lymphocytes # (Auto) 0.6 0.4-5.4 10 ^3/uL Monocytes # (Auto) 0.5 0-1.3 10 ^3/uL Eosinophils # (Auto) 0.1 0-0.8 10 ^3/uL Basophils # (Auto) 0 0-0.2 10 ^3/uL Nucleated Red Blood Cells 0.2 % Sodium Level 145 136-145 mmol/L Potassium Level 3.9 3.5-5.1 mmol/L Chloride Level 109 H 98-107 mmol/L Carbon Dioxide Level 27 20-31 mmol/L Anion Gap 9 5-15 Blood Urea Nitrogen 21 9-23 mg/dL Creatinine 0.87 0.700-1.30 mg/dL Glomerular Filtration Rate Calc 93 >90 mL/min BUN/Creatinine Ratio 24.1 H 10.0-20.0 Serum Glucose 80 74-106 mg/dL Lactic Acid Level 1.2 0.4-2.0 mmol/L Calcium Level 9.1 8.7-10.4 mg/dL Total Bilirubin 0.8 0.2-1.0 mg/dL Aspartate Amino Transferase (AST) 18 13-40 U/L Alanine Aminotransferase (ALT) 12 7-40 U/L Alkaline Phosphatase 72 46-116 U/L Troponin I High Sensitivity 15 </=54 ng/L B-Type Natriuretic Peptide 238.75 0-100 pg/mL Total Protein 6.4 5.7-8.2 g/dL Albumin 3.5 3.2-4.8 g/dL Triglycerides Level 48 < 150 mg/dL Cholesterol Level 92 < 200 mg/dL LDL Cholesterol 33 < 100 mg/dL HDL Cholesterol 47 40-59 mg/dL Current Medications Medications (Trade) Dose Ordered Sig/Gabriella Route Start Time Stop Time Status Last Admin Diphenhydramine HCl (Benadryl Injection) 50 mg ONCE ONCE IV 07/09/25 21:30 07/09/25 21:31 DC 07/09/25 22:39 Lorazepam (Ativan Inj) 1 mg ONCE ONCE IV 07/09/25 21:30 07/09/25 21:31 DC 07/09/25 21:54 Acetaminophen (Tylenol Tablet) 650 mg ONCE ONCE PO 07/10/25 06:45 07/10/25 06:46 DC 07/10/25 06:50 Ceftriaxone Sodium 50 ml @ 100 mls/hr ONCE ONCE IV 07/10/25 08:30 07/10/25 08:59 DC 07/10/25 08:40 Time of 1ST Reevaluation: 19:04 Reevaluation 1ST: Unchanged Patient Education/Counseling: Diagnosis, Treatment Family Education/Counseling: No Family Present SEPSIS Sepsis Screen Date sepsis recognized/suspect: Jul 09, 2025 Time Sepsis recognized/suspect: 1700 Recent Procedure: No On Antibiotic Therapy: No Respiratory Rate >20: No Heart Rate >90: No Temp<36 C (96.8 F) or >38.3 C: No SBP <90 or MAP <65 mmHG: No New Acute Mental Status Change: No Is the patient on CPAP, BIPAP,: No Physician Orders Behavioral Restraints (07/09/25 16:50) Head Without Contrast (07/09/25 18:16) Breaker Boss (07/09/25 ) * Bleach Boiler Puller Consult (07/10/25 ) Blood Culture (07/10/25 06:35) Urine Bacterial Culture (07/10/25 06:35) Urinalysis (07/10/25 06:35) Chest Portable (07/10/25 06:35) Vital Signs Date Time Temp Pulse Resp B/P (MAP) Pulse Ox O2 Delivery O2 Flow Rate FiO2 07/10/25 07:49 98.8 07/10/25 07:26 70 14 98 Room Air* 0 21 07/10/25 07:26 98.8 70 14 123/55 (77) 98 98.8 07/10/25 06:50 100.1 07/10/25 06:41 100.1 62 12 123/49 (73) 95 100.1 07/10/25 02:01 63 16 163/76 (105) 97 07/10/25 01:01 53 15 159/82 (107) 99 12/14/25 00:00 55 17 151/77 (101) 99 07/09/25 23:01 54 16 154/68 (96) 07/09/25 22:00 56 13 157/81 (106) 99 07/09/25 20:01 65 17 172/93 (119) 99 07/09/25 19:46 99 Room Air* 0 21 07/09/25 19:46 97.4 97 11 167/82 (110) 98 97.4 07/09/25 19:00 60 10 156/93 (114) 99 07/09/25 18:00 64 12 160/85 (110) 99 07/09/25 17:00 65 11 159/84 (109) 96 07/09/25 16:57 89 18 99 Room Air* 0 21 07/09/25 16:48 97.3 74 18 151/87 (108) 99 97.3 07/09/25 15:50 97.6 68 16 121/80 99 97.6 Laboratory Tests Test 07/10/25 07:21 Lactic Acid Level 1.2 mmol/L (0.4-2.0) White Blood Count 4.7 10^3/uL (4.4-10.8) Medications Medications Dose Ordered Sig/Gabriella Route Start Time Stop Time Status Last Admin Dose Admin Acetaminophen 650 mg ONCE ONCE PO 07/10/25 06:45 07/10/25 06:46 DC 07/10/25 06:50 Ceftriaxone Sodium 50 ml @ 100 mls/hr ONCE ONCE IV 07/10/25 08:30 07/10/25 08:59 DC 07/10/25 08:40 Departure 1 Departure Time of Disposition: 08:20 (Patient's worsening altered mental status and increasing temperature. Patient with concern for underlying infection. We will admit patient for further workup. Patient appears mildly volume overloaded so we will not give the full fluid bolus.) Impression: Primary Impression: Acute metabolic encephalopathy Additional Impression: Generalized weakness Disposition: 09 ADMITTED INPATIENT Admit to: Med Surg Condition: Guarded Comments 70-year-old male with a history of schizophrenia arrived after a fall. Uncertain what his baseline mental status is. CT head unremarkable. Will admit for supportive care and further workup Critical Care Note Critical Care Time?: No Stability Stability form required: No Heart Score Heart Score: Heart Score Response (Comments) Value History N/A 0 EKG N/A 0 Age N/A 0 Risk Factors N/A 0 Troponin N/A 0 Total 0 I personally scribed for JESSICA STUART MD ([email or web address]) on 07/09/25 at 19:08. Electronically submitted by Justin Rowland ([facility]). JESSICA STUART MD Jul 09, 2025 19:08 WENDI GRAY MD Jul 10, 2025 08:22
[2025-07-09 19:46] VITALS: O2SAT 99
[2025-07-09] MEDS: diphenhydrAMINE HCL 50 MG/1 ML VL IV ONE (22:39)
[2025-07-10] MEDS: HALOPERIDOL LACTATE 5 MG/ML INJ VIAL IM ONE (00:16)
--- NOTE | 2025-07-10 00:21 | DVH ---
CT HEAD WITHOUT CONTRAST HISTORY: Fall head injury. COMPARISON: CT HEAD WITHOUT CONTRAST on DOS: 06/04/24. CONTRAST: Study was performed without contrast. TECHNIQUE: Axial images from the skull base to the vertex with coronal and sagittal reformatted images. Dose reduction technique was used on this scan by utilizing automated exposure control, adjustment of the mA and/or kV according to the patient size. DICOM format image data available to non-affiliated external healthcare facilities or entities on a secure, media free, reciprocally searchable basis with patient authorization for at least a 12 month period after the study. CTDIvol: 65.4 mGy; DLP: 1157.2 mGy-cm. FINDINGS: BRAIN PARENCHYMA: No acute hemorrhage, large vascular territory infarct, or mass effect. White matter is within normal limits for age. Mild cerebral volume loss with ex vacuo dilation of the ventricles, which is commensurate for age. VENTRICLES/EXTRA-AXIAL SPACES: No evidence of hydrocephalus. No extra-axial collection. Basal cisterns are patent. EXTRACRANIAL STRUCTURES: No acute or suspicious ossues abnormality. Normal soft tissues. Partially images portions of the paranasal sinuses and mastoids demonstrate no significant abnormality. Orbits are unremarkable. Mild calcific atherosclerosis of the carotid siphons. IMPRESSION: No acute intracranial abnormality.
[2025-07-10] MEDS: ACETAMINOPHEN 325 MG TAB PO ONE (06:50)
[2025-07-10 07:26] VITALS: PULSE 70; RESP 14; O2SAT 98
[2025-07-10 07:37] LABS: Hematocrit 41.3 % (41.0-53.0); Hemoglobin 13.8 g/dL (13.5-17.5); Mean Corpuscular Hemoglobin 30.9 pg (28.0-32.0); Mean Corpuscular Volume 92.3 fL (80.0-100.0); Nucleated Red Blood Cells % 0.2 %
[2025-07-10 07:52] LABS: Alanine Aminotransferase 12 U/L (7-40); Albumin 3.5 g/dL (3.2-4.8); Alkaline Phosphatase 72 U/L (46-116); Anion Gap 9 (5-15); BUN/Creatinine Ratio 24.1 (10.0-20.0); Bilirubin, Total 0.8 mg/dL (0.2-1.0); Blood Urea Nitrogen 21 mg/dL (9-23); Calcium 9.1 mg/dL (8.7-10.4); Carbon Dioxide 27 mmol/L (20-31); Glucose 80 mg/dL (74-106); Potassium 3.9 mmol/L (3.5-5.1); Total Protein 6.4 g/dL (5.7-8.2)
[2025-07-10 07:56] LABS: Chloride 109 mmol/L (98-107); Sodium 145 mmol/L (136-145)
--- NOTE | 2025-07-10 08:13 | DVH ---
CHEST RADIOGRAPH Indication: weakness Technique: Single frontal view of the chest was obtained COMPARISON: XY CHEST PORTABLE on DOS: 06/03/24, XY CHEST XRAY 1 VIEW on DOS: 02/25/24, XY CHEST XRAY 1 VIEW on DOS: 02/24/24, XY CHEST XRAY 1 VIEW on DOS: 02/23/24, XY CHEST XRAY 1 VIEW on DOS: 02/22/24 FINDINGS: Lines and Tubes: None Lungs: Increased interstitial prominence. This may represent pulmonary vascular congestion and/or viral pneumonia. Pleura: No effusion.No pneumothorax. Cardiomediastinal contours: Cardiomegaly. Bones: Unremarkable IMPRESSION: Cardiomegaly. Increased interstitial prominence. This may represent pulmonary vascular congestion and/or viral pneumonia.
[2025-07-10] MEDS: SODIUM CHLORIDE 0.9% 1,000 ML IV SCH (08:45)
--- NOTE | 2025-07-10 08:45 | DVHHP2 ---
History of Present Illness Reason for Visit: Fall injury History of Present Illness The patient is a 70-year-old male who presents to the emergency department via EMS from a [facility] for evaluation of unwitnessed falls. In the ED, the patient become agitated and confused and required four point restraints for several hours. On subsequent assessment, the patient is alert and oriented x3 and cooperative. He reports the asleep on a piece of rubber, resulting in a back wide fall with head strike. He denies loss of consciousness. He also reports a productive cough for over one week. In the ED, the patient was noted to be febrile. CT head was negative for acute intracranial abnormalities. Chest x-ray demonstrated cardiomegaly with increased interstitial prominence, concerning for pulmonary vascular congestion and/or viral pneumonia. Past Medical History Dementia Bipolar Partially blind Schizophrenia Questionable CVA Past Surgical History Right knee replacement Family History Reviewed, non-contributory to the management of this case. Past Social History Resides in a facility denies smoking, alcohol or illicit drugs abuse. Review of Systems Constitutional: Yes: Fever, Weakness, Malaise; No: Chills, Sweats, Other Eyes: No: Pain, Vision change, Conjunctivae inflammation, Eyelid inflammation, Other, Redness ENT: No: Ear pain, Ear discharge, Nose pain, Nose discharge, Nose congestion, Mouth pain, Mouth swelling, Throat pain, Throat swelling, Other Respiratory: Cough; No: Dry, Shortness of breath, SOB with excertion, Wheezing, Hemoptysis, Pleuritic Pain, Sputum, Wheezing, Other Cardiovascular: No: Chest Pain, Palpitations, Orthopnea, Paroxysmal Noc. Dyspnea, Edema, Lt Headedness, Other Gastrointestinal: No: Nausea, Vomiting, Abdominal Pain, Diarrhea, Constipation, Melena, Hematochezia, Other Genitourinary: No Dysuria, No Frequency, No Incontinence, No Hematuria, No Retention, No Other Musculoskeletal: No: other, neck pain, shoulder pain, arm pain, back pain, hand pain, leg pain, foot pain Skin: No: Rash, Lesions, Jaundice, Bruising, Other Neurological: Weakness; No: Numbness, Incoordination, Change in speech, Confusion, Seizures, Other Allergies: Coded Allergies: NO KNOWN ALLERGIES (Unverified , 12/03/23) Exam Vital Signs Vital Signs Date Time Temp Pulse Resp B/P (MAP) Pulse Ox O2 Delivery O2 Flow Rate FiO2 07/10/25 07:49 98.8 07/10/25 07:26 70 14 98 Room Air* 0 21 07/10/25 07:26 123/55 (77) General Appearance: Alert, Oriented X3, Cooperative, No acute distress HEENT: Atraumatic, PERRLA, EOMI Respiratory: Other (Diminished lung sounds) Cardiovascular: Regular rate, Normal S1, Normal S2, Other (No edema) Abdominal: Normal bowel sounds, Soft, No tenderness Extremities: No clubbing, No cyanosis, No edema Skin: No rashes, No breakdown Neuro: Normal speech Psych/Mental Status: Mental status NL Labs/Xrays Labs Test 07/10/25 07:21 Range/Units White Blood Count 4.7 4.4-10.8 10^3/uL Red Blood Count 4.47 L 4.5-5.90 10^6/uL Hemoglobin 13.8 13.5-17.5 g/dL Hematocrit 41.3 41.0-53.0 % Mean Corpuscular Volume 92.3 80.0-100.0 fL Mean Corpuscular Hemoglobin 30.9 28.0-32.0 pg Mean Corpuscular Hemoglobin Concent 33.4 32.0-36.0 g/dL Red Cell Distribution Width 16.5 H 11.8-14.3 % Platelet Count 110 L 140-450 10^3/uL Mean Platelet Volume 8.5 6.9-10.8 fL Neutrophils (%) (Auto) 73.7 37.0-80.0 % Lymphocytes (%) (Auto) 13.1 10.0-50.0 % Monocytes (%) (Auto) 11.0 0.0-12.0 % Eosinophils (%) (Auto) 1.9 0.0-7.0 % Basophils (%) (Auto) 0.3 0.0-2.0 % Neutrophils # (Auto) 3.4 1.6-8.6 10 ^3/uL Lymphocytes # (Auto) 0.6 0.4-5.4 10 ^3/uL Monocytes # (Auto) 0.5 0-1.3 10 ^3/uL Eosinophils # (Auto) 0.1 0-0.8 10 ^3/uL Basophils # (Auto) 0 0-0.2 10 ^3/uL Nucleated Red Blood Cells 0.2 % Sodium Level 145 136-145 mmol/L Potassium Level 3.9 3.5-5.1 mmol/L Chloride Level 109 H 98-107 mmol/L Carbon Dioxide Level 27 20-31 mmol/L Anion Gap 9 5-15 Blood Urea Nitrogen 21 9-23 mg/dL Creatinine 0.87 0.700-1.30 mg/dL Glomerular Filtration Rate Calc 93 >90 mL/min BUN/Creatinine Ratio 24.1 H 10.0-20.0 Serum Glucose 80 74-106 mg/dL Lactic Acid Level 1.2 0.4-2.0 mmol/L Calcium Level 9.1 8.7-10.4 mg/dL Total Bilirubin 0.8 0.2-1.0 mg/dL Aspartate Amino Transferase (AST) 18 13-40 U/L Alanine Aminotransferase (ALT) 12 7-40 U/L Alkaline Phosphatase 72 46-116 U/L Troponin I High Sensitivity 15 </=54 ng/L B-Type Natriuretic Peptide 238.75 0-100 pg/mL Total Protein 6.4 5.7-8.2 g/dL Albumin 3.5 3.2-4.8 g/dL PROCEDURE(s): CXRP - CHEST PORTABLE REASON: weakness ORDER NUMBER(s): [id number], ACCESSION NUMBER(s): [id number] CHEST RADIOGRAPH Indication: weakness Technique: Single frontal view of the chest was obtained COMPARISON: XY CHEST PORTABLE on DOS: 06/03/24, XY CHEST XRAY 1 VIEW on DOS: 02/25/24, XY CHEST XRAY 1 VIEW on DOS: 02/24/24, XY CHEST XRAY 1 VIEW on DOS: 02/23/24, XY CHEST XRAY 1 VIEW on DOS: 02/22/24 FINDINGS: Lines and Tubes: None Lungs: Increased interstitial prominence. This may represent pulmonary vascular congestion and/or viral pneumonia. Pleura: No effusion.No pneumothorax. Cardiomediastinal contours: Cardiomegaly. Bones: Unremarkable IMPRESSION: Cardiomegaly. Increased interstitial prominence. This may represent pulmonary vascular congestion and/or viral pneumonia. IS Sepsis Screen Date sepsis recognized/suspect: Jul 10, 2025 Time Sepsis recognized/suspect: 725 Recent Procedure: No On Antibiotic Therapy: No Respiratory Rate >20: No Heart Rate >90: No Temp<36 C (96.8 F) or >38.3 C: No SBP <90 or MAP <65 mmHG: No New Acute Mental Status Change: No Is the patient on CPAP, BIPAP,: No Physician Orders * Gas Manager Consult (07/10/25 ) Blood Culture (07/10/25 06:35) Urine Bacterial Culture (07/10/25 06:35) Urinalysis (07/10/25 06:35) Chest Portable (07/10/25 06:35) Troponin-I Hs (07/10/25 07:35) Troponin-I Hs (07/10/25 09:35) Ceftriaxone 1gm/50ml (Rocephin) (07/10/25 08:30) Admit (07/10/25 08:37) Code Status (07/10/25 08:37) 0.9% Ns 1000 Ml (07/10/25 08:45) Fall Risk Precautions In Place QSHIFT (07/10/25 08:37) Complete Blood Count (07/11/25 04:00) Comprehensive Metabolic Panel (07/11/25 04:00) Vital Signs Date Time Temp Pulse Resp B/P (MAP) Pulse Ox O2 Delivery O2 Flow Rate FiO2 07/10/25 07:49 98.8 07/10/25 07:26 70 14 98 Room Air* 0 21 07/10/25 07:26 98.8 70 14 123/55 (77) 98 98.8 07/10/25 06:50 100.1 07/10/25 06:41 100.1 62 12 123/49 (73) 95 100.1 07/10/25 02:01 63 16 163/76 (105) 97 07/10/25 01:01 53 15 159/82 (107) 99 Laboratory Tests Test 07/10/25 07:21 Lactic Acid Level 1.2 mmol/L (0.4-2.0) White Blood Count 4.7 10^3/uL (4.4-10.8) Medications Medications Dose Ordered Sig/Gabriella Route Start Time Stop Time Status Last Admin Dose Admin Acetaminophen 650 mg ONCE ONCE PO 07/10/25 06:45 07/10/25 06:46 DC 07/10/25 06:50 650 MG Ceftriaxone Sodium 50 ml @ 100 mls/hr ONCE ONCE IV 07/10/25 08:30 07/10/25 08:59 07/10/25 08:40 100 MLS/HR Diphenhydramine HCl 50 mg ONCE ONCE IV 07/09/25 21:30 07/09/25 21:31 DC 07/09/25 22:39 50 MG Lorazepam 1 mg ONCE ONCE IV 07/09/25 21:30 07/09/25 21:31 DC 07/09/25 21:54 1 MG Assessment/Plan Assessment/Plan # Acute metabolic encephalopathy, now alert and oriented x3 * Admit to medical-surgical unit * Monitor neurological status # Fever with productive cough * Possible viral pneumonia versus vascular congestion * Empiric antibiotic Doxy * Soft IVF * Blood and sputum culture * Chest x-ray in a.m. * Med neb treatment #Cardiomegaly, HFpEF, (EF 55%) chronic diastolic heart failure * Possible congestion on x-ray * Monitor #Unwitnessed mechanical fall with head strike * CT head negative, currently neurologically intact # hypertension Continue with antihypertensive medication Monitor BP # hyperlipidemia Statins Check lipid panel # dementia, schizophrenia, bipolar disorder Continue with current Rx DVT prophylaxis with SCD Medical plan discussed with patient and RN Plan discussed with: Patient My Orders Orders - NADEEM CHEEK Procedure Category Date Status Time Admit ADMIT 07/10/25 Verified 08:37 Code Status CODE 07/10/25 Verified 08:37 0.9% Ns 1000 Ml PHA 07/10/25 Verified 08:45 Fall Risk Precautions JANICE 07/10/[address] 08:37 Complete Blood Count LAB 07/11/25 Verified 04:00 Comprehensive LAB 07/11/25 Verified Metabolic Panel 04:00 Date of Service: Jul 10, 2025 Billing Provider: NADEEM CHEEK Common Visit Codes: [id number] INP/OBS CARE (HIGH) NADEEM CHEEK Jul 10, 2025 08:45
[2025-07-10] MEDS ORDERED: ATOR20TA50 PO (09:28)
[2025-07-10] MEDS ORDERED: IPRATROPIUM BROM 0.5 MG/2.5ML INH SOL NEB PRN (09:30)
[2025-07-10] MEDS: DOXYCYCLINE 100 MG TAB/CAP PO ONE (09:42)
[2025-07-10 09:45] LABS: Triglycerides 48 mg/dL (< 150)
[2025-07-10 09:47] LABS: Cholesterol 92 mg/dL (< 200); HDL Cholesterol 47 mg/dL (40-59)
[2025-07-10] MEDS: SPIRONOLACTONE 25 MG TAB PO SCH (10:00)
[2025-07-10] MEDS: risperiDONE 1 MG TAB PO SCH (10:00)
[2025-07-10 14:31] VITALS: BP 132/66; PULSE 45; RESP 18; O2SAT 99
[2025-07-10 16:56] VITALS: BP 138/78; PULSE 51; RESP 16; TEMP 98.3; O2SAT 97
[2025-07-10 17:00] VITALS: BP 138/78; PULSE 51; RESP 16; TEMP 98.3; O2SAT 97
[2025-07-10] MEDS: LORazepam 0.5 MG TAB PO PRN (17:28)
[2025-07-10 19:52] LABS: COVID19 ANTIGEN SOFIA FIA NEGATIVE (NEGATIVE)
[2025-07-10 21:00] VITALS: BP 133/82; PULSE 58; RESP 17; TEMP 98; O2SAT 96
[2025-07-10] MEDS: DOXYCYCLINE 100 MG TAB/CAP PO SCH (22:00)
[2025-07-10] MEDS: LATANOPROST 0.005 % OPTH(EYE) SOL 2.5ML EACHEYE SCH (22:26)
[2025-07-11] VITALS (9 sets, daily range): BP systolic 133–166; BP diastolic 79–102; PULSE 50–86; RESP 17–18; TEMP 97.1–98.4; O2SAT 95–97
--- NOTE | 2025-07-11 05:43 | DVH ---
CHEST RADIOGRAPH Indication: pneumonia Technique: Single frontal view of the chest was obtained COMPARISON: XY CHEST PORTABLE on DOS: 07/10/25, XY CHEST PORTABLE on DOS: 06/03/24, XY CHEST XRAY 1 VIEW on DOS: 02/25/24, XY CHEST XRAY 1 VIEW on DOS: 02/24/24, XY CHEST XRAY 1 VIEW on DOS: 02/23/24 FINDINGS: Lines and Tubes: None Lungs: Diffuse increased interstitial prominence. Pleura: No effusion.No pneumothorax. Cardiomediastinal contours: Cardiomegaly. Bones: Unremarkable IMPRESSION: Cardiomegaly with mild pulmonary vascular congestion.
[2025-07-11 11:49] LABS: Hematocrit 40.1 % (41.0-53.0); Hemoglobin 13.5 g/dL (13.5-17.5); Mean Corpuscular Hemoglobin 31.1 pg (28.0-32.0); Mean Corpuscular Volume 92.6 fL (80.0-100.0)
[2025-07-11 12:07] LABS: Alanine Aminotransferase 12 U/L (7-40); Albumin 3.3 g/dL (3.2-4.8); Alkaline Phosphatase 67 U/L (46-116); Anion Gap 9 (5-15); BUN/Creatinine Ratio 9.5 (10.0-20.0); Bilirubin, Total 0.6 mg/dL (0.2-1.0); Calcium 8.9 mg/dL (8.7-10.4); Carbon Dioxide 25 mmol/L (20-31); Chloride 106 mmol/L (98-107); Glucose 90 mg/dL (74-106); Potassium 4.1 mmol/L (3.5-5.1); Sodium 140 mmol/L (136-145); Total Protein 6.2 g/dL (5.7-8.2)
[2025-07-11 12:10] LABS: Blood Urea Nitrogen 7 mg/dL (9-23)
[2025-07-11] MEDS: HYDROcodone-ACET 10/325MG TAB PO PRN (12:48)
[2025-07-11 13:14] LABS: Total Cells Counted 100.0 (100)
--- NOTE | 2025-07-11 16:58 | DVHINCON2 ---
Date of service: Jul 10, 2025 History of Present Illness The patient is a 70-year-old male who presents to the emergency department via EMS from a [facility] for evaluation of unwitnessed falls. In the ED, the patient become agitated and confused and required four point restraints for several hours. On subsequent assessment, the patient is alert and oriented x3 and cooperative. He reports the asleep on a piece of rubber, resulting in a back wide fall with head strike. He denies loss of consciousness. He also reports a productive cough for over one week. In the ED, the patient was noted to be febrile. CT head was negative for acute pathology Family History: Patient reports no known family medical history. Allergies: Coded Allergies: NO KNOWN ALLERGIES (Unverified , 12/03/23) Home Meds Reported Medications Atorvastatin Calcium (ATORVASTATIN CALCIUM) 20 Mg Tab, 1 TAB PO DAILY 07/10/25 Lorazepam (ATIVAN TABLET) 0.5 Mg Tb, 1 TAB PO Q8HPRN, #90 TAB 12/04/23 Ipratropium-Albuterol (COMBIVENT RESPIMAT) Respimat Aer, 1 IN, AER 12/04/23 Albuterol Sulfate (VENTOLIN MDI) 90 Mcg Ih, 90 MCG IN PRN, INH 12/04/23 Spironolactone (Spironolactone) 25 Mg Tab, 1 TAB PO DAILY, #90 TAB 1 Refill 12/04/23 Risperidone (RisperDAL TABLET) 1 Mg Tb, 3 TAB PO DAILY, #30 TAB 1 Refill 12/04/23 Quetiapine Fumerate (QUETIAPINE FUMARATE) 25 Mg Tab, 25 MG PO BID, TAB 12/04/23 Melatonin (KP MELATONIN) 3 Mg Tab, 1 TAB PO QPM, #30 TAB 2 Refills 12/04/23 Latanoprost (LATANOPROST) 0.005 % Kimani, 1 DROP EACHEYE QPM, #7.5 ML 3 Refills 12/04/23 Mrwpwarlhiz-Djpztbwubtf-Glw C- (Glucosamine Chondroitin) 1 Cap Cap, 1 CAP PO TID, CAP 12/04/23 Mckjnjlctli-Htuwxbvnaij-Ycb C- (Glucosamine Chondroitin) Tab, 1 OR, TAB 12/04/23 Dorzolamide-Timolol (Dorzolamide Hcl/Timolol M) 1 Ml Kimani, 1 DROP EACHEYE BID, #10 ML 6 Refills 12/04/23 Divalproex Sodium (Divalproex Sodium Dr) 500 Mg Tab, 1 TAB PO TID, #60 TAB 1 Refill 12/04/23 Brimonidine Tartrate-Timolol M (Brimonidine Tartrate/Josr 0.2-0.5 %) 1 Kimani Kimani, 1 KIMANI OP, ML 12/04/23 Benazepril & Hydrochlorothiazi (Benazepril Hydrochloride/ 10-12.5 mg) 1 Tab Tab, 1 TAB PO, TAB 12/04/23 Amlodipine Besylate (NORVASC TABLET) 5 Mg Tb, 2.5 MG PO, TAB 12/04/23 Fluticasone-Salmeterol (Advair Diskus 250/50) 1 Puff Ih, 1 PUFF INH BID, #3 INHALER 3 Refills 12/04/23 Current Medications Current Medications Medications (Trade) Dose Ordered Sig/Gabriella Route PRN Reason Start Time Stop Time Status Last Admin Latanoprost (Xalatan) 1 drop QPM EACHEYE 07/10/25 18:00 Doxycycline Monohydrate (Vibramycin Tablet) 100 mg Q12HR PO 07/10/25 22:00 07/11/25 09:04 Acetaminophen/ Hydrocodone Bitart ([place] 10/325MG Tab) 1 tab Q6HP PRN PO MODERATE PAIN (4-6 PAIN SCALE) 07/11/25 12:15 07/11/25 12:48 Vital Signs Vital Signs Date Time Temp Pulse Resp B/P (MAP) Pulse Ox O2 Delivery O2 Flow Rate FiO2 07/11/25 13:00 97.8 61 17 133/79 (97) 95 97.8 07/11/25 11:47 Room Air 07/11/25 08:00 0 21 Physical Exam within normal range for the most part Labs/Diagnostic Data Labs Test 07/11/25 10:37 07/10/25 18:40 07/10/25 11:19 07/10/25 07:21 Range/Units White Blood Count 5.0 4.4-10.8 10^3/uL Red Blood Count 4.34 L 4.5-5.90 10^6/uL Hemoglobin 13.5 13.5-17.5 g/dL Hematocrit 40.1 L 41.0-53.0 % Mean Corpuscular Volume 92.6 80.0-100.0 fL Mean Corpuscular Hemoglobin 31.1 28.0-32.0 pg Mean Corpuscular Hemoglobin Concent 33.6 32.0-36.0 g/dL Red Cell Distribution Width 15.8 H 11.8-14.3 % Platelet Count 98 L 140-450 10^3/uL Mean Platelet Volume 8.6 6.9-10.8 fL Neutrophils (%) (Auto) 37.0-80.0 % Lymphocytes (%) (Auto) 10.0-50.0 % Monocytes (%) (Auto) 0.0-12.0 % Basophils (%) (Auto) 0.0-2.0 % Neutrophils # (Auto) 1.6-8.6 10 ^3/uL Lymphocytes # (Auto) 0.4-5.4 10 ^3/uL Monocytes # (Auto) 0-1.3 10 ^3/uL Differential Total Cells Counted 100.0 100 Neutrophils % (Manual) 62 37.0-80.0 Band Neutrophils % (Manual) 2 Lymphocytes % (Manual) 16 10.0-50.0 Monocytes % (Manual) 16 H 0-12 Eosinophils % (Manual) 3 0-7 Basophils % (Manual) 0 0.0-2.0 Metamyelocytes % (manual) 1 Myelocytes % (Manual) 0 Promyelocytes % (Manual) 0 Blast Cells % (Manual) 0 Reactive Lymphocytes 0 Platelet Estimate Decreased Sodium Level 140 # 136-145 mmol/L Potassium Level 4.1 3.5-5.1 mmol/L Chloride Level 106 98-107 mmol/L Carbon Dioxide Level 25 20-31 mmol/L Anion Gap 9 5-15 Blood Urea Nitrogen 7 #L 9-23 mg/dL Creatinine 0.74 0.700-1.30 mg/dL Glomerular Filtration Rate Calc 98 >90 mL/min BUN/Creatinine Ratio 9.5 L 10.0-20.0 Serum Glucose 90 74-106 mg/dL Calcium Level 8.9 8.7-10.4 mg/dL Total Bilirubin 0.6 0.2-1.0 mg/dL Aspartate Amino Transferase (AST) 23 13-40 U/L Alanine Aminotransferase (ALT) 12 7-40 U/L Alkaline Phosphatase 67 46-116 U/L Total Protein 6.2 5.7-8.2 g/dL Albumin 3.3 3.2-4.8 g/dL Influenza Type A Antigen Negative Negative Influenza Type B Antigen Negative Negative SARS-CoV-2 Antigen (Rapid) Negative NEGATIVE Troponin I High Sensitivity 11 </=54 ng/L Eosinophils (%) (Auto) 1.9 0.0-7.0 % Eosinophils # (Auto) 0.1 0-0.8 10 ^3/uL Basophils # (Auto) 0 0-0.2 10 ^3/uL Nucleated Red Blood Cells 0.2 % Lactic Acid Level 1.2 0.4-2.0 mmol/L B-Type Natriuretic Peptide 238.75 0-100 pg/mL Triglycerides Level 48 < 150 mg/dL Cholesterol Level 92 < 200 mg/dL LDL Cholesterol 33 < 100 mg/dL HDL Cholesterol 47 40-59 mg/dL Microbiology Date/Time Source Procedure Growth Status 07/10/25 07:21 Blood Blood Culture - Preliminary NO GROWTH AFTER 24 HOURS OF INCUBATION. Resulted Assessment # Acute metabolic encephalopathy, # Fever with productive cough * Possible v pneumonia * #Cardiomegaly, HFpEF, (EF 55%) chronic diastolic heart failure * #Unwitnessed mechanical fall with head strike * CT head negative, currently neurologically intact # hypertension Continue with antihypertensive medication Monitor BP # hyperlipidemia Statins Check lipid panel # dementia, schizophrenia, bipolar disorder Continue with current Rx pt started on doxycycline Plan discussed with: Other (nursing) NOEMI MCKEON DO Jul 11, 2025 16:58
[2025-07-12 01:00] VITALS: BP 149/90; PULSE 51; RESP 16; TEMP 98.2; O2SAT 96
[2025-07-12 05:00] VITALS: BP 140/83; PULSE 60; RESP 15; TEMP 98.3; O2SAT 95
[2025-07-12 08:00] VITALS: PULSE 80; RESP 20
[2025-07-12 08:28] LABS: Urine Protein, UAD Negative (Negative)
[2025-07-12 09:00] VITALS: BP 161/93; PULSE 55; RESP 16; TEMP 97.4; O2SAT 98
[2025-07-12 13:00] VITALS: BP 101/70; PULSE 58; RESP 14; TEMP 97.8; O2SAT 98
[2025-07-12] MEDS: HALOPERIDOL LACTATE 5 MG/ML INJ VIAL IM ONE (17:00)
[2025-07-12 21:00] VITALS: BP 149/84; PULSE 80; RESP 19; TEMP 97.8; O2SAT 96
[2025-07-13] MEDS: LORazepam 2MG/ML-1ML VIAL IM ONE (04:45)
[2025-07-13 08:00] VITALS: PULSE 80; RESP 20
[2025-07-13 09:00] VITALS: BP 130/76; PULSE 70; RESP 20; TEMP 97.5; O2SAT 96
[2025-07-13 13:00] VITALS: BP 124/78; PULSE 60; RESP 20; TEMP 97.6; O2SAT 96
[2025-07-13 16:30] VITALS: BP 125/87; PULSE 70; RESP 20; TEMP 97.5; O2SAT 95
[2025-07-13 20:00] VITALS: PULSE 76; RESP 18
[2025-07-13 21:00] VITALS: BP 129/78; PULSE 107; RESP 18; TEMP 98; O2SAT 100
[2025-07-14] VITALS (8 sets, daily range): BP systolic 114–147; BP diastolic 37–88; PULSE 59–89; RESP 16–18; TEMP 95.6–98.1; O2SAT 92–100
--- NOTE | 2025-07-14 12:53 | DVHPN2 ---
Progress Note Date Seen: Jul 11, 2025 Medical Necessity Reason Pt with a Central, PICC or Fol: No Objective vital signs Vital Sign Date Time Temp Pulse Resp B/P (MAP) Pulse Ox O2 Delivery O2 Flow Rate FiO2 07/14/25 10:27 132/88 07/14/25 08:00 Room Air* 0 21 07/14/25 05:00 97.9 60 16 98 97.9 Total Intake and Output 07/13/25 07/13/25 07/14/25 15:00 23:00 07:00 Intake Total 400 ml 800 ml Balance 400 ml 800 ml medications Current Medications Medications Dose Ordered Sig/Gabriella Route Start Time Stop Time Status Last Admin Dose Admin Sodium Chloride 1,000 ml @ 60 mls/hr [id number] IV 07/10/25 08:45 07/10/25 08:45 60 MLS/HR Amlodipine Besylate 2.5 mg DAILY PO 07/10/25 10:00 07/14/25 10:27 2.5 MG Latanoprost 1 drop QPM EACHEYE 07/10/25 18:00 07/13/25 18:51 1 DROP Lorazepam 0.5 mg Q8HPRN PRN PO 07/10/25 14:00 07/10/25 17:28 0.5 MG Quetiapine Fumarate 25 mg BID PO 07/10/25 10:00 07/14/25 10:25 25 MG Risperidone 3 mg DAILY PO 07/10/25 10:00 07/14/25 10:25 3 MG Spironolactone 25 mg DAILY PO 07/10/25 10:00 07/14/25 10:27 25 MG Ipratropium Gray 0.5 mg Q4HPRN PRN NEB 07/10/25 09:30 Cancel Doxycycline Monohydrate 100 mg Q12HR PO 07/10/25 22:00 07/14/25 10:25 100 MG Acetaminophen/ Hydrocodone Bitart 1 tab Q6HP PRN PO 07/11/25 12:15 07/11/25 19:25 1 TAB laboratory and microbiology Laboratory Tests 07/11/25 10:37 Test 07/11/25 10:37 Range/Units Serum Glucose 90 74-106 mg/dL Microbiology Date/Time Source Procedure Growth Status 07/12/25 07:50 Voided Urine Urine Culture - Preliminary No growth Resulted 07/10/25 07:21 Blood Blood Culture - Preliminary NO GROWTH AFTER 72 HOURS OF INCUBATION. Resulted Labs and/or images reviewed: Labs reviewed by me, Image(s) reviewed by me Problem List/Assessment/Plan Problem List/Assessment/Plan # Acute metabolic encephalopathy, # Fever with productive cough * Possible v pneumonia * #Cardiomegaly, HFpEF, (EF 55%) chronic diastolic heart failure * #Unwitnessed mechanical fall with head strike * CT head negative, currently neurologically intact # hypertension Continue with antihypertensive medication Monitor BP # hyperlipidemia Statins Check lipid panel # dementia, schizophrenia, bipolar disorder Continue with current Rx pt started on doxycycline daily assessment Plan discussed with: Patient, Other (nursing) My Orders My Orders Orders - NOEMI MCKEON DO Procedure Category Date Status Time Discharge DISCHARGE 07/14/25 Transmitted 12:46 Discharge DISCHARGE 07/14/25 Transmitted 12:48 NOEMI MCKEON DO Jul 14, 2025 12:53
--- NOTE | 2025-07-14 12:55 | DVHPN2 ---
Progress Note Date Seen: Jul 12, 2025 Medical Necessity Reason Pt with a Central, PICC or Fol: No Objective vital signs Vital Sign Date Time Temp Pulse Resp B/P (MAP) Pulse Ox O2 Delivery O2 Flow Rate FiO2 07/14/25 10:27 132/88 07/14/25 08:00 Room Air* 0 21 07/14/25 05:00 97.9 60 16 98 97.9 Total Intake and Output 07/13/25 07/13/25 07/14/25 15:00 23:00 07:00 Intake Total 400 ml 800 ml Balance 400 ml 800 ml medications Current Medications Medications Dose Ordered Sig/Gabriella Route Start Time Stop Time Status Last Admin Dose Admin Sodium Chloride 1,000 ml @ 60 mls/hr [id number] IV 07/10/25 08:45 07/10/25 08:45 60 MLS/HR Amlodipine Besylate 2.5 mg DAILY PO 07/10/25 10:00 07/14/25 10:27 2.5 MG Latanoprost 1 drop QPM EACHEYE 07/10/25 18:00 07/13/25 18:51 1 DROP Lorazepam 0.5 mg Q8HPRN PRN PO 07/10/25 14:00 07/10/25 17:28 0.5 MG Quetiapine Fumarate 25 mg BID PO 07/10/25 10:00 07/14/25 10:25 25 MG Risperidone 3 mg DAILY PO 07/10/25 10:00 07/14/25 10:25 3 MG Spironolactone 25 mg DAILY PO 07/10/25 10:00 07/14/25 10:27 25 MG Ipratropium Tiro 0.5 mg Q4HPRN PRN NEB 07/10/25 09:30 Cancel Doxycycline Monohydrate 100 mg Q12HR PO 07/10/25 22:00 07/14/25 10:25 100 MG Acetaminophen/ Hydrocodone Bitart 1 tab Q6HP PRN PO 07/11/25 12:15 07/11/25 19:25 1 TAB laboratory and microbiology Laboratory Tests 07/11/25 10:37 Test 07/11/25 10:37 Range/Units Serum Glucose 90 74-106 mg/dL Microbiology Date/Time Source Procedure Growth Status 07/12/25 07:50 Voided Urine Urine Culture - Preliminary No growth Resulted 07/10/25 07:21 Blood Blood Culture - Preliminary NO GROWTH AFTER 72 HOURS OF INCUBATION. Resulted Problem List/Assessment/Plan Problem List/Assessment/Plan # Acute metabolic encephalopathy, # Fever with productive cough * Possible v pneumonia * #Cardiomegaly, HFpEF, (EF 55%) chronic diastolic heart failure * #Unwitnessed mechanical fall with head strike * CT head negative, currently neurologically intact # hypertension Continue with antihypertensive medication Monitor BP # hyperlipidemia Statins Check lipid panel # dementia, schizophrenia, bipolar disorder Continue with current Rx pt started on doxycycline daily assessment Plan discussed with: Patient My Orders My Orders Orders - NOEMI MCKEON DO Procedure Category Date Status Time Discharge DISCHARGE 07/14/25 Transmitted 12:46 Discharge DISCHARGE 07/14/25 Transmitted 12:48 NOEMI MCKEON DO Jul 14, 2025 12:55
--- NOTE | 2025-07-14 12:57 | DVHPN2 ---
Progress Note Date Seen: Jul 13, 2025 Medical Necessity Reason Pt with a Central, PICC or Fol: No Objective vital signs Vital Sign Date Time Temp Pulse Resp B/P (MAP) Pulse Ox O2 Delivery O2 Flow Rate FiO2 07/14/25 10:27 132/88 07/14/25 08:00 Room Air* 0 21 07/14/25 05:00 97.9 60 16 98 97.9 Total Intake and Output 07/13/25 07/13/25 07/14/25 15:00 23:00 07:00 Intake Total 400 ml 800 ml Balance 400 ml 800 ml medications Current Medications Medications Dose Ordered Sig/Gabriella Route Start Time Stop Time Status Last Admin Dose Admin Sodium Chloride 1,000 ml @ 60 mls/hr [id number] IV 07/10/25 08:45 07/10/25 08:45 60 MLS/HR Amlodipine Besylate 2.5 mg DAILY PO 07/10/25 10:00 07/14/25 10:27 2.5 MG Latanoprost 1 drop QPM EACHEYE 07/10/25 18:00 07/13/25 18:51 1 DROP Lorazepam 0.5 mg Q8HPRN PRN PO 07/10/25 14:00 07/10/25 17:28 0.5 MG Quetiapine Fumarate 25 mg BID PO 07/10/25 10:00 07/14/25 10:25 25 MG Risperidone 3 mg DAILY PO 07/10/25 10:00 07/14/25 10:25 3 MG Spironolactone 25 mg DAILY PO 07/10/25 10:00 07/14/25 10:27 25 MG Ipratropium Bureau 0.5 mg Q4HPRN PRN NEB 07/10/25 09:30 Cancel Doxycycline Monohydrate 100 mg Q12HR PO 07/10/25 22:00 07/14/25 10:25 100 MG Acetaminophen/ Hydrocodone Bitart 1 tab Q6HP PRN PO 07/11/25 12:15 07/11/25 19:25 1 TAB laboratory and microbiology Laboratory Tests 07/11/25 10:37 Test 07/11/25 10:37 Range/Units Serum Glucose 90 74-106 mg/dL Microbiology Date/Time Source Procedure Growth Status 07/12/25 07:50 Voided Urine Urine Culture - Preliminary No growth Resulted 07/10/25 07:21 Blood Blood Culture - Preliminary NO GROWTH AFTER 72 HOURS OF INCUBATION. Resulted Labs and/or images reviewed: Labs reviewed by me, Image(s) reviewed by me Problem List/Assessment/Plan Problem List/Assessment/Plan # Acute metabolic encephalopathy, # Fever with productive cough * Possible v pneumonia * #Cardiomegaly, HFpEF, (EF 55%) chronic diastolic heart failure * #Unwitnessed mechanical fall with head strike * CT head negative, currently neurologically intact # hypertension Continue with antihypertensive medication Monitor BP # hyperlipidemia Statins Check lipid panel # dementia, schizophrenia, bipolar disorder Continue with current Rx pt started on doxycycline daily assessment Plan discussed with: Patient My Orders My Orders Orders - NOEMI MCKEON DO Procedure Category Date Status Time Discharge DISCHARGE 07/14/25 Transmitted 12:46 Discharge DISCHARGE 07/14/25 Transmitted 12:48 NOEMI MCKEON DO Jul 14, 2025 12:57
--- NOTE | 2025-07-14 12:58 | DVHDS2 ---
Discharge Summary Date of Admission Jul 10, 2025 at 08:37 Date of Discharge: Jul 13, 2025 Labs/Diagnostic Data: Laboratory Results Test 07/12/25 07:50 07/11/25 10:37 07/10/25 18:40 07/10/25 11:19 Urine Color Yellow (Yellow) Urine Clarity Clear (Clear) Urine pH 6.5 (5.0-9.0) Urine Specific [place] 1.016 (1.001-1.035) Urine Protein Negative (Negative) Urine Ketones Negative (Negative) Urine Blood Negative /uL (Negative) Urine Nitrite Negative (Negative) Urine Bilirubin Negative (Negative) Urine Urobilinogen 4 mg/dL (Negative) Urine Leukocyte Esterase Negative /uL (Negative) Urine RBC 1 /hpf (0 - 3) Urine Microscopic WBC 1 /HPF (0-3) Urine Squamous Epithelial Cells None seen /hpf (<5) Urine Bacteria None seen /hpf (None Seen) Urine Mucus Few (None Seen) Urine Glucose Normal mg/dL (Normal) White Blood Count 5.0 10^3/uL (4.4-10.8) Red Blood Count 4.34 10^6/uL (4.5-5.90) Hemoglobin 13.5 g/dL (13.5-17.5) Hematocrit 40.1 % (41.0-53.0) Mean Corpuscular Volume 92.6 fL (80.0-100.0) Mean Corpuscular Hemoglobin 31.1 pg (28.0-32.0) Mean Corpuscular Hemoglobin Concent 33.6 g/dL (32.0-36.0) Red Cell Distribution Width 15.8 % (11.8-14.3) Platelet Count 98 10^3/uL (140-450) Mean Platelet Volume 8.6 fL (6.9-10.8) Neutrophils (%) (Auto) % (37.0-80.0) Lymphocytes (%) (Auto) % (10.0-50.0) Monocytes (%) (Auto) % (0.0-12.0) Basophils (%) (Auto) % (0.0-2.0) Neutrophils # (Auto) 10 ^3/uL (1.6-8.6) Lymphocytes # (Auto) 10 ^3/uL (0.4-5.4) Monocytes # (Auto) 10 ^3/uL (0-1.3) Differential Total Cells Counted 100.0 (100) Neutrophils % (Manual) 62 (37.0-80.0) Band Neutrophils % (Manual) 2 Lymphocytes % (Manual) 16 (10.0-50.0) Monocytes % (Manual) 16 (0-12) Eosinophils % (Manual) 3 (0-7) Basophils % (Manual) 0 (0.0-2.0) Metamyelocytes % (manual) 1 Myelocytes % (Manual) 0 Promyelocytes % (Manual) 0 Blast Cells % (Manual) 0 Reactive Lymphocytes 0 Platelet Estimate Decreased Sodium Level 140 mmol/L (136-145) Potassium Level 4.1 mmol/L (3.5-5.1) Chloride Level 106 mmol/L (98-107) Carbon Dioxide Level 25 mmol/L (20-31) Anion Gap 9 (5-15) Blood Urea Nitrogen 7 mg/dL (9-23) Creatinine 0.74 mg/dL (0.700-1.30) Glomerular Filtration Rate Calc 98 mL/min (>90) BUN/Creatinine Ratio 9.5 (10.0-20.0) Serum Glucose 90 mg/dL (74-106) Calcium Level 8.9 mg/dL (8.7-10.4) Total Bilirubin 0.6 mg/dL (0.2-1.0) Aspartate Amino Transferase (AST) 23 U/L (13-40) Alanine Aminotransferase (ALT) 12 U/L (7-40) Alkaline Phosphatase 67 U/L (46-116) Total Protein 6.2 g/dL (5.7-8.2) Albumin 3.3 g/dL (3.2-4.8) Influenza Type A Antigen Negative (Negative) Influenza Type B Antigen Negative (Negative) SARS-CoV-2 Antigen (Rapid) Negative (NEGATIVE) Troponin I High Sensitivity 11 ng/L (</=54) Test 07/10/25 07:21 Eosinophils (%) (Auto) 1.9 % (0.0-7.0) Eosinophils # (Auto) 0.1 10 ^3/uL (0-0.8) Basophils # (Auto) 0 10 ^3/uL (0-0.2) Nucleated Red Blood Cells 0.2 % Lactic Acid Level 1.2 mmol/L (0.4-2.0) B-Type Natriuretic Peptide 238.75 pg/mL (0-100) Triglycerides Level 48 mg/dL (< 150) Cholesterol Level 92 mg/dL (< 200) LDL Cholesterol 33 mg/dL (< 100) HDL Cholesterol 47 mg/dL (40-59) Other Laboratory Tests 07/11/25 10:37 Brief Hx & Hospital Course: # Acute metabolic encephalopathy, # Fever with productive cough * Possible v pneumonia * #Cardiomegaly, HFpEF, (EF 55%) chronic diastolic heart failure * #Unwitnessed mechanical fall with head strike * CT head negative, currently neurologically intact # hypertension Continue with antihypertensive medication Monitor BP # hyperlipidemia Statins Check lipid panel # dementia, schizophrenia, bipolar disorder Continue with current Rx pt improve significantly discharged back to [facility] Condition at Discharge: Fair Final Diagnosis/Problems List encephalopathy Discharge Disposition: Assisted Living Facility Discharge Instruct/Medications Diet: Cardiac 2g Na,low cholest Activity: No Restrictions, As Tolerated Scheduled Albuterol Sulfate (Ventolin Mdi), 90 MCG IN PRN, (Reported) Atorvastatin Calcium (Atorvastatin Calcium), 1 TAB PO DAILY, (Reported) Divalproex Sodium (Divalproex Sodium Dr), 1 TAB PO TID, (Reported) Dorzolamide-Timolol (Dorzolamide Hcl/Timolol M), 1 DROP EACHEYE BID, (Reported) Fluticasone-Salmeterol (Advair Diskus 250/50), 1 PUFF INH BID, (Reported) Eurdmjsrrss-Ooubgdcjdhk-Cxj C- (Glucosamine Chondroitin), 1 CAP PO TID, (Reported) Latanoprost (Latanoprost), 1 DROP EACHEYE QPM, (Reported) Lorazepam (Ativan Tablet), 1 TAB PO Q8HPRN, (Reported) Melatonin (Kp Melatonin), 1 TAB PO QPM, (Reported) Quetiapine Fumerate (Quetiapine Fumarate), 25 MG PO BID, (Reported) Risperidone (RisperDAL TABLET), 3 TAB PO DAILY, (Reported) Spironolactone (Spironolactone), 1 TAB PO DAILY, (Reported) Miscellaneous Medications Amlodipine Besylate (Norvasc Tablet), 2.5 MG PO, (Reported) Benazepril & Hydrochlorothiazi (Benazepril Hydrochloride/ 10-12.5 mg), 1 TAB PO, (Reported) Brimonidine Tartrate-Timolol M (Brimonidine Tartrate/Josr 0.2-0.5 %), 1 KIMANI OP, (Reported) Bxrtangxwen-Mcxtuiiqzod-Olc C- (Glucosamine Chondroitin), 1 OR, (Reported) Ipratropium-Albuterol (Combivent Respimat), 1 IN, (Reported) Discharge Statement: "Patient was advised to return to the ER or call 911 if any headaches, dizziness, shortness of breath, chest pain, abdominal pain, bleeding, fevers, or worsening of medical condition. Patient was counseled about treatment plan, medications, possible side effects, patientverbalized understanding. All questions were answered to the best of my ability. This discharge took greater then 30 minutes in planning, reviewing documentation, counseling the patient, and discussing with other team members." ASSESSMENT ASSESSMENT Assessment encephalopathy NOEMI MCKEON DO Jul 14, 2025 12:58
[2025-07-15 05:00] VITALS: BP 153/86; RESP 18; TEMP 98
[2025-07-15 09:00] VITALS: BP 108/64; PULSE 73; RESP 18; TEMP 98.1; O2SAT 96
== END 2025-07-15 09:17 | disposition home or self-care (01) | DRG 70 ==
LOC: ER 15:49 → EDBD 15:49 → OVERFLOW 07-10 08:37 → WEST WING 07-10 16:49
PROVIDERS: ADMIT Internal Medicine; ATTEND Internal Medicine
DX: G93.41 Metabolic encephalopathy (principal); J12.9 Viral pneumonia, unspecified; I50.32 Chronic diastolic (congestive) heart failure; I11.0 Hypertensive heart disease with heart failure; F03.93 Unspecified dementia, unspecified severity, with mood disturbance; F20.9 Schizophrenia, unspecified; Z78.1 Physical restraint status; E78.5 Hyperlipidemia, unspecified; F31.9 Bipolar disorder, unspecified; Z20.822 Contact with and (suspected) exposure to COVID-19; H54.7 Unspecified visual loss; Z96.651 Presence of right artificial knee joint; Z86.73 Personal history of transient ischemic attack (TIA), and cerebral infarction without residual deficits
CPT/HCPCS: 36415; 70450; 71045; 80053; 80061; 81001; 83605; 83880; 84484; 85007; 85025; 85027; 87040; 87081; 87086; 87426; 87804; 96374; 96375; 97163; G0378

== ENCOUNTER 2025-07-17 15:07 | Inpatient (IN) | payer MEDICARE, MEDICAID ==
[~2025-07-17] VITALS: Ht 180.3 cm; Wt 77.5 kg
[~2025-07-17 15:07] MED LIST changes: +ATOR20TA50 PO
--- NOTE | 2025-07-17 15:28 | ECG ---
[facility] Test Date: 2025-07-17 Test Time: 15:08:28 Pat Name: NGOZI CURRIE Department: [facility] ED Patient ID: [facility]-[id number] Room: [address] [place] [address] Gender: M Telecommunicator: FAMILIA : 1955 Requested By: LEWIS AVILA Order Number: [id number] Reading MD: Kevin Purcell Measurements Intervals [place] Rate: 66 P: -9 NJ: 224 QRS: 228 QRSD: 86 T: 53 QT: 409 QTc: 429 Interpretive Statements Sinus rhythm Prolonged [place] interval Probable right ventricular hypertrophy ST elevation, consider inferior injury Electronically Signed On 07-18-2025 15:28:35 PST by Kevin Purcell Please click the below link to view image of tracing.
[2025-07-17 16:00] VITALS: PULSE 63; RESP 10; O2SAT 99
[2025-07-17] MEDS: SODIUM CHLORIDE 0.9% 1,000 ML IV ONE ×2 (16:09→17:37)
[2025-07-17] MEDS: VANCOMYCIN 1GM/250ML KIT 250 ML IV ONE (16:19)
--- NOTE | 2025-07-17 16:35 | ED.PDOC ---
Altered Mental Status HPI Comments This is a 70 year old male BIBA presenting to the ED with chief complaint of ALOC. EMS reports patient is coming from [facility] with concern of ALOC. EMS relays patient was found to have generalized weakness with associated hypotension by staff, noted to be 88/50. EMS states they were not informed of t he patient's baseline, only that he is not acting like normal. EMS notes patient is unable to answer questions at this time and is currently on 6L of O2. EMS relays patient was given a DuoNeb breathing treatment en route to the ED due to patient being noted to have an O2 saturation of 80% on RA. EMS denies any further history at this time. Chief Complaint: General Weakness Time Seen by MD: 16:29 Primary Care Provider: UNKNOWN Reviewed Notes: Nurses Notes, Medications, Allergies Allergies: Coded Allergies: NO KNOWN ALLERGIES (Unverified , 12/03/23) Home Meds Reported Medications Atorvastatin Calcium (ATORVASTATIN CALCIUM) 20 Mg Tab, 1 TAB PO DAILY 07/10/25 Lorazepam (ATIVAN TABLET) 0.5 Mg Tb, 1 TAB PO Q8HPRN, #90 TAB 12/04/23 Ipratropium-Albuterol (COMBIVENT RESPIMAT) Respimat Aer, 1 IN, AER 12/04/23 Albuterol Sulfate (VENTOLIN MDI) 90 Mcg Ih, 90 MCG IN PRN, INH 12/04/23 Spironolactone (Spironolactone) 25 Mg Tab, 1 TAB PO DAILY, #90 TAB 1 Refill 12/04/23 Risperidone (RisperDAL TABLET) 1 Mg Tb, 3 TAB PO DAILY, #30 TAB 1 Refill 12/04/23 Quetiapine Fumerate (QUETIAPINE FUMARATE) 25 Mg Tab, 25 MG PO BID, TAB 12/04/23 Melatonin (KP MELATONIN) 3 Mg Tab, 1 TAB PO QPM, #30 TAB 2 Refills 12/04/23 Latanoprost (LATANOPROST) 0.005 % Kimani, 1 DROP EACHEYE QPM, #7.5 ML 3 Refills 12/04/23 Ytgkvrzcciv-Ujbghkknqqy-Wng C- (Glucosamine Chondroitin) 1 Cap Cap, 1 CAP PO TID, CAP 12/04/23 Zismqejswkl-Mbucgomjaya-Cxj C- (Glucosamine Chondroitin) Tab, 1 OR, TAB 12/04/23 Dorzolamide-Timolol (Dorzolamide Hcl/Timolol M) 1 Ml Kimani, 1 DROP EACHEYE BID, #10 ML 6 Refills 12/04/23 Divalproex Sodium (Divalproex Sodium Dr) 500 Mg Tab, 1 TAB PO TID, #60 TAB 1 Refill 12/04/23 Brimonidine Tartrate-Timolol M (Brimonidine Tartrate/Josr 0.2-0.5 %) 1 Kimani Kimani, 1 KIMANI OP, ML 12/04/23 Benazepril & Hydrochlorothiazi (Benazepril Hydrochloride/ 10-12.5 mg) 1 Tab Tab, 1 TAB PO, TAB 12/04/23 Amlodipine Besylate (NORVASC TABLET) 5 Mg Tb, 2.5 MG PO, TAB 12/04/23 Fluticasone-Salmeterol (Advair Diskus 250/50) 1 Puff Ih, 1 PUFF INH BID, #3 INHALER 3 Refills 12/04/23 Information Source: Patient Mode of Arrival: EMS Severity: Unresponsive Timing: Hours Duration: Since onset Prehospital treatment: None Quality: Decreased Alertness, Change in Behavior, Confusion Recent: None History of: Dementia Past Medical History PAST MEDICAL HISTORY: Angina, CVA, Dementia, Schizophrenia, Seizures Surgical History: Denies all surgeries Family History Family History: Reviewed,noncontributory to illness Social History Smoker: Non-Smoker Alcohol: Denies ETOH Use Drugs: Denies Drug Use Lives In: [place] Constitutional: reports: weakness; denies: chills, diaphoresis, fatigue, fever, malaise, sweats, others EENTM: denies: blurred vision, double vision, ear bleeding, ear discharge, ear drainage, ear pain, ear ringing, eye pain, eye redness, hearing loss, mouth pain, mouth swelling, nasal discharge, nose bleeding, nose congestion, nose pain, photophobia, tearing, throat pain, throat swelling, voice changes, others Respiratory: denies: cough, hemoptysis, orthopnea, SOB at rest, shortness of breath, SOB with excertion, stridor, wheezing, others Cardiovascular: denies: chest pain, dizzy spells, diaphoresis, Dyspnea on exertion, edema, irregular heart beat, left arm pain, lightheadedness, p alpitations, PND, syncope, others Gastrointestinal: denies: abdomen distended, abdominal pain, blood streaked bowels, constipated, diarrhea, dysphagia, difficulty swallowing, hematemesis, melena, nausea, poor appetite, poor fluid intake, rectal bleeding, rectal pain, vomiting, others Genitourinary: denies: burning, dysuria, flank pain, frequency, hematuria, incontinence, penile discharge, penile sore, pain, testicle pain, testicle swelling, urgency, others Neurological: denies: dizziness, fainting, headache, left sided numbness, left sided weakness, numbness, paresthesia, pre-existing deficit, right sided numbness, right sided weakness, seizure, speech problems, tingling, tremors, weakness, others Musculoskeletal: denies: back pain, gout, joint pain, joint swelling, muscle pain, muscle stiffness, neck pain, others Integumetry: denies: bruises, change in color, change in hair/nails, dryness, laceration, lesions, lumps, rash, wounds, others Allergic/Immunocompromised: denies: Difficulty Healing, Frequent Infections, Hives, Itching, others Hematologic/Lymphatic: denies: anemia, blood clots, easy bleeding, easy b ruising, swollen glands, others Endocrine: denies: excessive hunger, excessive sweating, excessive thirst, excessive urination, flushing, intolerance to cold, intolerance to heat, unexplained weight gain, unexplained weight loss, others Psychiatric: denies: anxiety, bipolar disorder, depression, hopeless, panic disorder, schizophrenia, sleepless, suicidal, others Unable to Obtain due to: Altered Mental Status All Other Systems: Reviewed and Negative Physical Exam General Appearance: Moderate Distress HEENT: Normal ENT Inspection, Pharynx Normal, TMs Normal Neck: Full Range of Motion, Non-Tender, Normal, Normal Inspection Respiratory: Other (Coarse breath sounds) Cardiovascular: No Edema, No JVD, No Murmur, No Gallop, Normal Peripheral Pulses, Regular Rate/Rhythm Breast Exam: Deferred Gastrointestinal: No Organomegaly, Non Tender, No Pulsatile Mass, Normal Bowel Sounds, Soft Genitalia: Deferred Pelvic: Deferred Rectal: Deferred Extremities: No calf tenderness, No pedal edema Musculoskeletal : Apperance: Normal Neurologic: Disoriented Cerebellar Function: NOT DONE Reflexes: NOT DONE Skin: Pallor Peripheral Pulses: 3+ Radial (R), 3+ Radial (L) Lymphatic: No Adenopathy Was a procedure done? Was a procedure done?: No Differential Diagnosis (ALOC) Differential Diagnosis: Dehydration, Hypoxemia X-Ray, Labs, Meds, VS Vital Signs Date Time Temp Pulse Resp B/P (MAP) Pulse Ox O2 Delivery O2 Flow Rate FiO2 07/17/25 16:00 98.1 63 10 84/47 (59) 99 98.1 07/17/25 16:00 63 10 99 Nasal Cannula* 2 28 07/17/25 15:12 98.7 70 18 93/59 100 98.7 07/17/25 15:08 66 Lab Test 07/17/25 16:20 07/17/25 16:17 07/17/25 16:10 Range/Units Lactic Acid Level Pending POC Glucose 99 70-106 mg/dl White Blood Count 6.9 # 4.4-10.8 10^3/uL Red Blood Count 4.34 L 4.5-5.90 10^6/uL Hemoglobin 13.6 13.5-17.5 g/dL Hematocrit 40.0 L 41.0-53.0 % Mean Corpuscular Volume 92.2 80.0-100.0 fL Mean Corpuscular Hemoglobin 31.3 28.0-32.0 pg Mean Corpuscular Hemoglobin Concent 33.9 32.0-36.0 g/dL Red Cell Distribution Width 16.3 H 11.8-14.3 % Platelet Count 154 # 140-450 10^3/uL Mean Platelet Volume 7.9 6.9-10.8 fL Neutrophils (%) (Auto) 60.5 37.0-80.0 % Lymphocytes (%) (Auto) 26.0 10.0-50.0 % Monocytes (%) (Auto) 11.5 0.0-12.0 % Eosinophils (%) (Auto) 1.5 0.0-7.0 % Basophils (%) (Auto) 0.5 0.0-2.0 % Neutrophils # (Auto) 4.2 1.6-8.6 10 ^3/uL Lymphocytes # (Auto) 1.8 0.4-5.4 10 ^3/uL Monocytes # (Auto) 0.8 0-1.3 10 ^3/uL Eosinophils # (Auto) 0.1 0-0.8 10 ^3/uL Basophils # (Auto) 0 0-0.2 10 ^3/uL Nucleated Red Blood Cells 0.1 % Prothrombin Time Pending Prothrombin Time INR Pending Activated Partial Thromboplast Time Pending Sodium Level 143 136-145 mmol/L Potassium Level 3.7 3.5-5.1 mmol/L Chloride Level 111 H 98-107 mmol/L Carbon Dioxide Level 25 20-31 mmol/L Anion Gap 7 5-15 Blood Urea Nitrogen 16 9-23 mg/dL Creatinine 0.85 0.700-1.30 mg/dL Glomerular Filtration Rate Calc 94 >90 mL/min BUN/Creatinine Ratio 18.8 10.0-20.0 Serum Glucose 92 74-106 mg/dL Calcium Level 8.8 8.7-10.4 mg/dL Total Bilirubin 0.4 0.2-1.0 mg/dL Aspartate Amino Transferase (AST) 13 13-40 U/L Alanine Aminotransferase (ALT) 12 7-40 U/L Alkaline Phosphatase 65 46-116 U/L Total Protein 6.2 5.7-8.2 g/dL Albumin 3.3 3.2-4.8 g/dL Current Medications Medications (Trade) Dose Ordered Sig/Gabriella Route Start Time Stop Time Status Last Admin Vancomycin HCl 250 ml @ 250 mls/hr ONCE ONCE IV 07/17/25 16:00 07/17/25 16:59 07/17/25 16:19 Sodium Chloride 1,000 ml @ 1,000 mls/hr Q1H ONCE IV 07/17/25 16:00 07/17/25 16:59 07/17/25 16:09 Patient disoriented. No sign of any head injury. Possible sepsis. He is establish intravenous access. Was given fluids. Was given vancomycin. Placed on oxygen. Continue to monitoring. Time of 1ST Reevaluation: 17:28 Reevaluation 1ST: Unchanged Patient Education/Counseling: Pt Unresponsive Family Education/Counseling: No Family Present SEPSIS Sepsis Screen Date sepsis recognized/suspect: Jul 17, 2025 Time Sepsis recognized/suspect: 1511 Recent Procedure: No On Antibiotic Therapy: No Respiratory Rate >20: No Heart Rate >90: No Temp<36 C (96.8 F) or >38.3 C: No SBP <90 or MAP <65 mmHG: No New Acute Mental Status Change: No Is the patient on CPAP, BIPAP,: No Physician Orders PTPTT (07/17/25 15:53) Urinalysis (07/17/25 15:53) Chest Portable (07/17/25 15:53) Accucheck (07/17/25 15:53) Blood Culture (07/17/25 15:53) Vancomycin 1gm/250ml Kit (07/17/25 16:00) Lactic Acid W/ Reflex Order (07/17/25 16:00) Cefepime 1gm/50ml (Maxipime 1gm/50ml) (07/17/25 16:00) Notify Md If Map <65 Or Bp<90 (07/17/25 15:53) If Map<65 Start Vasopressor (07/17/25 15:53) Sepsis Reassesment After Fluid (07/17/25 16:53) Sodium Chloride 0.9% (07/17/25 16:00) Sodium Chloride 0.9% (07/17/25 16:00) Vital Signs Date Time Temp Pulse Resp B/P (MAP) Pulse Ox O2 Delivery O2 Flow Rate FiO2 07/17/25 16:00 98.1 63 10 84/47 (59) 99 98.1 07/17/25 16:00 63 10 99 Nasal Cannula* 2 28 07/17/25 15:12 98.7 70 18 93/59 100 98.7 07/17/25 15:08 66 Laboratory Tests Test 07/17/25 16:10 07/17/25 16:20 White Blood Count 6.9 10^3/uL (4.4-10.8) # Lactic Acid Level Pending Medications Medications Dose Ordered Sig/Gabriella Route Start Time Stop Time Status Last Admin Dose Admin Sodium Chloride 1,000 ml @ 1,000 mls/hr Q1H ONCE IV 07/17/25 16:00 07/17/25 16:59 07/17/25 16:09 Vancomycin HCl 250 ml @ 250 mls/hr ONCE ONCE IV 07/17/25 16:00 07/17/25 16:59 07/17/25 16:19 Departure 1 Departure Time of Disposition: 16:57 Impression: Primary Impression: Metabolic encephalopathy Additional Impressions: Pneumonia Qualified Codes: J18.9 - Pneumonia, unspecified organism Sepsis, unspecified organism Qualified Codes: A41.9 - Sepsis, unspecified organism Disposition: 09 ADMITTED INPATIENT Admit to: Med Surg Condition: Guarded Critical Care Note Critical Care Time?: Yes (90 min-critical care time only) Stability Stability form required: No Heart Score Heart Score: Heart Score Response (Comments) Value History N/A 0 EKG N/A 0 Age N/A 0 Risk Factors N/A 0 Troponin N/A 0 Total 0 I personally scribed for LEWIS AVILA MD ([email or web address]) on 07/17/25 at 16:35. Electronically submitted by Lew Saba ([email or web address]). LEWIS AVILA MD Jul 17, 2025 16:35
[2025-07-17 16:39] LABS: Hematocrit 40.0 % (41.0-53.0); Hemoglobin 13.6 g/dL (13.5-17.5); Mean Corpuscular Hemoglobin 31.3 pg (28.0-32.0); Mean Corpuscular Volume 92.2 fL (80.0-100.0); Nucleated Red Blood Cells % 0.1 %
[2025-07-17 16:54] LABS: Alanine Aminotransferase 12 U/L (7-40); Albumin 3.3 g/dL (3.2-4.8); Alkaline Phosphatase 65 U/L (46-116); Anion Gap 7 (5-15); BUN/Creatinine Ratio 18.8 (10.0-20.0); Bilirubin, Total 0.4 mg/dL (0.2-1.0); Blood Urea Nitrogen 16 mg/dL (9-23); Calcium 8.8 mg/dL (8.7-10.4); Carbon Dioxide 25 mmol/L (20-31); Chloride 111 mmol/L (98-107); Glucose 92 mg/dL (74-106); Potassium 3.7 mmol/L (3.5-5.1); Sodium 143 mmol/L (136-145); Total Protein 6.2 g/dL (5.7-8.2)
[2025-07-17 17:04] LABS: INR 1.14 (0.9-1.15); Partial Thromboplastin Time 34.6 SEC (24.5-34.5); Prothrombin Time 11.9 sec (9.3-11.8)
[2025-07-17] MEDS: CEFEPIME 1GM/50ML 50 ML IV ONE (17:37)
--- NOTE | 2025-07-17 17:52 | DVH ---
EXAM: XY CHEST PORTABLE CLINICAL HISTORY: sob TECHNIQUE: Single AP view of the chest WID: COMPARISON: XY CHEST PORTABLE on DOS: 07/11/25, FINDINGS: Lines and tubes: None Chest: The heart size and pulmonary vasculature is within normal limits. Calcified plaque projects over the aortic arch. Limited depth of inspiration. Small left pleural effusion. Small left basilar opacity. The osseous structures are grossly intact. IMPRESSION: 1. Small left pleural effusion and small left basilar opacity which could be atelectasis or pneumonia. 2. Limited depth of inspiration.
--- NOTE | 2025-07-17 19:07 | DVH ---
EXAM: CT HEAD WITHOUT CONTRAST INDICATION: altered TECHNIQUE: CT of the head without intravenous contrast. Radiation Dose Information: CT Dose: CTDI volume is 66.06 mGy. Dose-length product is 1235.52 mGy*cm The dose indicators for CT are the volume Computed Tomography (CT) Dose Index (CTDIvol) and the Dose Length Product (DLP), and are measured in units of mGy and mGy-cm, respectively. These indicators are not patient dose, but values generated from the CT scanner acquisition factors. The report includes radiation exposure data for exposures received during this examination. COMPARISON: CT HEAD WITHOUT CONTRAST on DOS: 07/09/25, CT HEAD WITHOUT CONTRAST on DOS: 06/04/24, MRI BRAIN HEAD WO CONTRAST on DOS: 12/04/23, CT HEAD WITHOUT CONTRAST on DOS: 12/03/23 FINDINGS: There is no evidence of acute intracranial hemorrhage, extra-axial collection, mass effect, midline shift, herniation or hydrocephalus. The ventricles, sulci and cisterns are age appropriate. The perez-white differentiation is intact. Patchy periventricular and subcortical white matter hypoattenuation is nonspecific but may be related to small vessel ischemic disease. The visualized paranasal sinuses and mastoid air cells are clear. The surrounding soft tissues and osseous structures are unremarkable. IMPRESSION: 1. No acute intracranial abnormality.
[2025-07-17 19:12] VITALS: PULSE 53; RESP 12
[2025-07-17] MEDS ORDERED: NITROGLYCERIN 0.4 MG SL TAB SL PRN (21:30)
[2025-07-17] MEDS ORDERED: MORPHINE SULFATE INJ 2 MG/ml SYRG IV PRN (21:30)
[2025-07-17] MEDS: SODIUM CHLORIDE 0.9% 1,000 ML IV SCH (21:37)
[2025-07-18 04:33] LABS: Hematocrit 41.1 % (41.0-53.0); Hemoglobin 13.9 g/dL (13.5-17.5); Mean Corpuscular Hemoglobin 31.3 pg (28.0-32.0); Mean Corpuscular Volume 92.4 fL (80.0-100.0); Nucleated Red Blood Cells % 0.1 %
[2025-07-18 04:58] LABS: Alanine Aminotransferase 12 U/L (7-40); Albumin 3.5 g/dL (3.2-4.8); Alkaline Phosphatase 68 U/L (46-116); Anion Gap 6 (5-15); BUN/Creatinine Ratio 14.3 (10.0-20.0); Blood Urea Nitrogen 11 mg/dL (9-23); Calcium 9.1 mg/dL (8.7-10.4); Carbon Dioxide 25 mmol/L (20-31); Glucose 84 mg/dL (74-106); Potassium 3.8 mmol/L (3.5-5.1); Sodium 142 mmol/L (136-145); Total Protein 6.5 g/dL (5.7-8.2)
[2025-07-18 04:59] LABS: Bilirubin, Total 0.7 mg/dL (0.2-1.0)
[2025-07-18 05:14] LABS: Chloride 111 mmol/L (98-107)
--- NOTE | 2025-07-18 06:58 | DVHHP2 ---
History of Present Illness Home Meds Reported Medications Atorvastatin Calcium (ATORVASTATIN CALCIUM) 20 Mg Tab, 1 TAB PO DAILY 07/10/25 Lorazepam (ATIVAN TABLET) 0.5 Mg Tb, 1 TAB PO Q8HPRN, #90 TAB 12/04/23 Ipratropium-Albuterol (COMBIVENT RESPIMAT) Respimat Aer, 1 IN, AER 12/04/23 Albuterol Sulfate (VENTOLIN MDI) 90 Mcg Ih, 90 MCG IN PRN, INH 12/04/23 Spironolactone (Spironolactone) 25 Mg Tab, 1 TAB PO DAILY, #90 TAB 1 Refill 12/04/23 Risperidone (RisperDAL TABLET) 1 Mg Tb, 3 TAB PO DAILY, #30 TAB 1 Refill 12/04/23 Quetiapine Fumerate (QUETIAPINE FUMARATE) 25 Mg Tab, 25 MG PO BID, TAB 12/04/23 Melatonin (KP MELATONIN) 3 Mg Tab, 1 TAB PO QPM, #30 TAB 2 Refills 12/04/23 Latanoprost (LATANOPROST) 0.005 % Kimani, 1 DROP EACHEYE QPM, #7.5 ML 3 Refills 12/04/23 Xcioberxpeg-Zskfopxbyxi-Obp C- (Glucosamine Chondroitin) 1 Cap Cap, 1 CAP PO TID, CAP 12/04/23 Lhzouzmqlsy-Xrypcjvevwc-Flm C- (Glucosamine Chondroitin) Tab, 1 OR, TAB 12/04/23 Dorzolamide-Timolol (Dorzolamide Hcl/Timolol M) 1 Ml Kimani, 1 DROP EACHEYE BID, #10 ML 6 Refills 12/04/23 Divalproex Sodium (Divalproex Sodium Dr) 500 Mg Tab, 1 TAB PO TID, #60 TAB 1 Refill 12/04/23 Brimonidine Tartrate-Timolol M (Brimonidine Tartrate/Josr 0.2-0.5 %) 1 Kimani Kimani, 1 KIMANI OP, ML 12/04/23 Benazepril & Hydrochlorothiazi (Benazepril Hydrochloride/ 10-12.5 mg) 1 Tab Tab, 1 TAB PO, TAB 12/04/23 Amlodipine Besylate (NORVASC TABLET) 5 Mg Tb, 2.5 MG PO, TAB 12/04/23 Fluticasone-Salmeterol (Advair Diskus 250/50) 1 Puff Ih, 1 PUFF INH BID, #3 INHALER 3 Refills 12/04/23 Past Medical History Patient Family History: Patient reports no known family medical history. H&P Exam Vital Signs Vital Signs Date Time Temp Pulse Resp B/P (MAP) Pulse Ox O2 Delivery O2 Flow Rate FiO2 07/17/25 19:12 53 12 Room Air* 0 21 07/17/25 19:10 127/52 (77) 97 07/17/25 16:00 98.1 98.1 SEPSIS Sepsis Screen Date sepsis recognized/suspect: Jul 17, 2025 Time Sepsis recognized/suspect: 1911 Recent Procedure: No On Antibiotic Therapy: Yes Respiratory Rate >20: No Heart Rate >90: No Temp<36 C (96.8 F) or >38.3 C: No SBP <90 or MAP <65 mmHG: No New Acute Mental Status Change: No Is the patient on CPAP, BIPAP,: No Laboratory Tests Test 07/18/25 04:06 White Blood Count 6.8 10^3/uL (4.4-10.8) Medications Medications Dose Ordered Sig/Gabriella Route Start Time Stop Time Status Last Admin Dose Admin Sodium Chloride 1,000 ml @ 60 mls/hr [id number] IV 07/17/25 21:30 07/17/25 21:37 60 MLS/HR Labs/Xrays Labs Test 07/18/25 04:06 07/17/25 16:20 07/17/25 16:17 07/17/25 16:10 Range/Units White Blood Count 6.8 4.4-10.8 10^3/uL Red Blood Count 4.45 L 4.5-5.90 10^6/uL Hemoglobin 13.9 13.5-17.5 g/dL Hematocrit 41.1 41.0-53.0 % Mean Corpuscular Volume 92.4 80.0-100.0 fL Mean Corpuscular Hemoglobin 31.3 28.0-32.0 pg Mean Corpuscular Hemoglobin Concent 33.9 32.0-36.0 g/dL Red Cell Distribution Width 15.7 H 11.8-14.3 % Platelet Count 150 140-450 10^3/uL Mean Platelet Volume 7.9 6.9-10.8 fL Neutrophils (%) (Auto) 59.4 37.0-80.0 % Lymphocytes (%) (Auto) 27.4 10.0-50.0 % Monocytes (%) (Auto) 10.4 0.0-12.0 % Eosinophils (%) (Auto) 2.4 0.0-7.0 % Basophils (%) (Auto) 0.4 0.0-2.0 % Neutrophils # (Auto) 4.1 1.6-8.6 10 ^3/uL Lymphocytes # (Auto) 1.9 0.4-5.4 10 ^3/uL Monocytes # (Auto) 0.7 0-1.3 10 ^3/uL Eosinophils # (Auto) 0.2 0-0.8 10 ^3/uL Basophils # (Auto) 0 0-0.2 10 ^3/uL Nucleated Red Blood Cells 0.1 % Sodium Level 142 136-145 mmol/L Potassium Level 3.8 3.5-5.1 mmol/L Chloride Level 111 H 98-107 mmol/L Carbon Dioxide Level 25 20-31 mmol/L Anion Gap 6 5-15 Blood Urea Nitrogen 11 9-23 mg/dL Creatinine 0.77 0.700-1.30 mg/dL Glomerular Filtration Rate Calc 97 >90 mL/min BUN/Creatinine Ratio 14.3 10.0-20.0 Serum Glucose 84 74-106 mg/dL Calcium Level 9.1 8.7-10.4 mg/dL Total Bilirubin 0.7 0.2-1.0 mg/dL Aspartate Amino Transferase (AST) 13 13-40 U/L Alanine Aminotransferase (ALT) 12 7-40 U/L Alkaline Phosphatase 68 46-116 U/L Total Protein 6.5 5.7-8.2 g/dL Albumin 3.5 3.2-4.8 g/dL Lactic Acid Level 1.1 0.4-2.0 mmol/L POC Glucose 99 70-106 mg/dl Prothrombin Time 11.9 H 9.3-11.8 sec Prothrombin Time INR 1.14 0.9-1.15 Activated Partial Thromboplast Time 34.6 H 24.5-34.5 SEC NOEMI MCKEON DO Jul 18, 2025 06:58
[2025-07-18 08:16] VITALS: PULSE 50; RESP 14; O2SAT 98
[2025-07-18] MEDS: ENOXAPARIN SOD 40 MG/0.4 ML SYRINGE SC SCH (10:27)
[2025-07-18 19:30] VITALS: PULSE 50; RESP 14; O2SAT 99
--- NOTE | 2025-07-18 21:10 | DVHPN2 ---
Progress Note Date Seen: Jul 18, 2025 Objective vital signs Vital Sign Date Time Temp Pulse Resp B/P (MAP) Pulse Ox O2 Delivery O2 Flow Rate FiO2 07/18/25 20:00 63 07/18/25 20:00 13 147/93 (111) 95 07/18/25 19:30 Room Air* 0 21 07/18/25 08:00 98.2 98.2 Total Intake and Output 07/17/25 07/17/25 07/18/25 15:00 23:00 07:00 Intake Total 1485.0 ml 492.5 ml Balance 1485.0 ml 492.5 ml medications Current Medications Medications Dose Ordered Sig/Gabriella Route Start Time Stop Time Status Last Admin Dose Admin Sodium Chloride 1,000 ml @ 60 mls/hr [id number] IV 07/17/25 21:30 07/17/25 21:37 60 MLS/HR Enoxaparin Sodium 40 mg DAILY SC 07/18/25 10:00 07/18/25 10:27 40 MG Nitroglycerin 0.4 mg Q5MINP PRN SL 07/17/25 21:30 Morphine Sulfate 2 mg Q30M PRN IV 07/17/25 21:30 laboratory and microbiology Laboratory Tests 07/18/25 04:06 Test 07/18/25 04:06 Range/Units Serum Glucose 84 74-106 mg/dL Microbiology Date/Time Source Procedure Growth Status 07/17/25 16:10 Blood Blood Culture - Preliminary NO GROWTH AFTER 24 HOURS OF INCUBATION. Resulted My Orders My Orders Orders - NOEMI MCKEON DO Procedure Category Date Status Time Admit ADMIT 07/17/25 Transmitted 21:18 Full Liq Diet DIET 07/18/25 Transmitted Breakfast Sodium Chloride 0.9% PHA 07/17/25 In Process 21:30 Enoxaparin Sodium PHA 07/18/25 In Process (Lovenox) 10:00 Condition: Serious JANICE 07/17/25 In Process 21:18 Nitroglycerin PHA 07/17/25 In Process Sublingual (Ntrostat 21:30 Morphine Sulfate PHA 07/17/25 In Process Injection 21:30 Stat Ekg For Chest JANICE 07/17/25 In Process Pain 21:18 Notify Of Changes JANICE 07/17/25 In Process From Base 21:18 [employer] Clerk For JANICE 07/17/25 In Process 24 Hours 21:18 Emergency Dysrhythmia JANICE 07/17/25 In Process Protocol 21:18 Rhythm Strips Once JANICE 07/17/25 In Process Every Shift 21:18 Oxygen By Nasal RT 07/17/25 Transmitted Cannula 21:18 Communication Order ORDERS 07/18/25 Transmitted 20:46 Code Status CODE 07/18/25 Transmitted 20:46 NOEMI MCKEON DO Jul 18, 2025 21:10
[2025-07-18] MEDS ORDERED: HALOPERIDOL LACTATE 5 MG/ML INJ VIAL IM ONE (22:45)
[2025-07-18] MEDS: HALOPERIDOL LACTATE 5 MG/ML INJ VIAL IM PRN (23:07)
[2025-07-18] MEDS: HALOPERIDOL LACTATE 5 MG/ML INJ VIAL ONE (23:07)
[2025-07-19] VITALS (7 sets, daily range): BP systolic 104–156; BP diastolic 78–92; PULSE 56–92; RESP 17–20; TEMP 97.7–98.1; O2SAT 95–99
[2025-07-19] MEDS ORDERED: HYDR1TAB97 PO (01:21)
[2025-07-19] MEDS ORDERED: SENN-58 PO (01:21)
[2025-07-19] MEDS ORDERED: HYOS0.1250 PO (01:21)
[2025-07-19] MEDS ORDERED: ACET-1881 PO (01:21)
[2025-07-19] MEDS ORDERED: NITR1SPR TL (01:21)
[2025-07-19] MEDS ORDERED: MOMLQ GT (01:23)
[2025-07-19 08:17] LABS: Urine Protein, UAD TRACE (Negative)
[2025-07-20] VITALS (7 sets, daily range): BP systolic 113–141; BP diastolic 56–82; PULSE 51–72; RESP 16–19; TEMP 79.8–98.2; O2SAT 95–99
[2025-07-21] VITALS (8 sets, daily range): BP systolic 119–147; BP diastolic 72–97; PULSE 53–71; RESP 16–18; TEMP 97.6–98.3; O2SAT 96–98
--- NOTE | 2025-07-21 12:05 | DVHDS2 ---
Discharge Summary Date of Admission Jul 17, 2025 at 21:18 Date of Discharge: Jul 21, 2025 Labs/Diagnostic Data: Laboratory Results Test 07/19/25 07:47 07/18/25 21:27 07/18/25 04:06 07/17/25 16:20 Urine Color Yellow (Yellow) Urine Clarity Clear (Clear) Urine pH 6.0 (5.0-9.0) Urine Specific [place] 1.029 (1.001-1.035) Urine Protein Trace (Negative) Urine Ketones 1+ (Negative) Urine Blood Negative /uL (Negative) Urine Nitrite Negative (Negative) Urine Bilirubin Negative (Negative) Urine Urobilinogen 4 mg/dL (Negative) Urine Leukocyte Esterase Negative /uL (Negative) Urine RBC 2 /hpf (0 - 3) Urine Microscopic WBC 2 /HPF (0-3) Urine Squamous Epithelial Cells Few /hpf (<5) Urine Bacteria None seen /hpf (None Seen) Urine Hyaline Casts Few /lpf (0 - 2) Urine Mucus Few (None Seen) Urine Glucose Normal mg/dL (Normal) POC Glucose 99 mg/dl (70-106) White Blood Count 6.8 10^3/uL (4.4-10.8) Red Blood Count 4.45 10^6/uL (4.5-5.90) Hemoglobin 13.9 g/dL (13.5-17.5) Hematocrit 41.1 % (41.0-53.0) Mean Corpuscular Volume 92.4 fL (80.0-100.0) Mean Corpuscular Hemoglobin 31.3 pg (28.0-32.0) Mean Corpuscular Hemoglobin Concent 33.9 g/dL (32.0-36.0) Red Cell Distribution Width 15.7 % (11.8-14.3) Platelet Count 150 10^3/uL (140-450) Mean Platelet Volume 7.9 fL (6.9-10.8) Neutrophils (%) (Auto) 59.4 % (37.0-80.0) Lymphocytes (%) (Auto) 27.4 % (10.0-50.0) Monocytes (%) (Auto) 10.4 % (0.0-12.0) Eosinophils (%) (Auto) 2.4 % (0.0-7.0) Basophils (%) (Auto) 0.4 % (0.0-2.0) Neutrophils # (Auto) 4.1 10 ^3/uL (1.6-8.6) Lymphocytes # (Auto) 1.9 10 ^3/uL (0.4-5.4) Monocytes # (Auto) 0.7 10 ^3/uL (0-1.3) Eosinophils # (Auto) 0.2 10 ^3/uL (0-0.8) Basophils # (Auto) 0 10 ^3/uL (0-0.2) Nucleated Red Blood Cells 0.1 % Sodium Level 142 mmol/L (136-145) Potassium Level 3.8 mmol/L (3.5-5.1) Chloride Level 111 mmol/L (98-107) Carbon Dioxide Level 25 mmol/L (20-31) Anion Gap 6 (5-15) Blood Urea Nitrogen 11 mg/dL (9-23) Creatinine 0.77 mg/dL (0.700-1.30) Glomerular Filtration Rate Calc 97 mL/min (>90) BUN/Creatinine Ratio 14.3 (10.0-20.0) Serum Glucose 84 mg/dL (74-106) Calcium Level 9.1 mg/dL (8.7-10.4) Total Bilirubin 0.7 mg/dL (0.2-1.0) Aspartate Amino Transferase (AST) 13 U/L (13-40) Alanine Aminotransferase (ALT) 12 U/L (7-40) Alkaline Phosphatase 68 U/L (46-116) Total Protein 6.5 g/dL (5.7-8.2) Albumin 3.5 g/dL (3.2-4.8) Lactic Acid Level 1.1 mmol/L (0.4-2.0) Test 07/17/25 16:10 Prothrombin Time 11.9 sec (9.3-11.8) Prothrombin Time INR 1.14 (0.9-1.15) Activated Partial Thromboplast Time 34.6 SEC (24.5-34.5) Other Laboratory Tests 07/18/25 04:06 Discharge Disposition: Assisted Living Facility Discharge Instruct/Medications Diet: Cardiac 2g Na,low cholest Activity: No Restrictions, As Tolerated Scheduled Albuterol Sulfate (Ventolin Mdi), 90 MCG IN PRN, (Reported) Atorvastatin Calcium (Atorvastatin Calcium), 1 TAB PO DAILY, (Reported) Divalproex Sodium (Divalproex Sodium Dr), 1 TAB PO TID, (Reported) Dorzolamide-Timolol (Dorzolamide Hcl/Timolol M), 1 DROP EACHEYE BID, (Reported) Fluticasone-Salmeterol (Advair Diskus 250/50), 1 PUFF INH BID, (Reported) Ifkjuosfxfa-Nfcbhosrpds-Asx C- (Glucosamine Chondroitin), 1 CAP PO TID, (Reported) Hyoscyamine Sulfate (Levsin), 0.125 MG PO Q6HP, (Reported) Latanoprost (Latanoprost), 1 DROP EACHEYE QPM, (Reported) Lorazepam (Ativan Tablet), 1 TAB PO Q8HPRN, (Reported) Melatonin (Kp Melatonin), 1 TAB PO QPM, (Reported) Nitroglycerin (Nitroglycerin Lingual), 0.4 MG TL TAKE 1 TAB SUBCU, (Reported) Quetiapine Fumerate (Quetiapine Fumarate), 25 MG PO BID, (Reported) Risperidone (RisperDAL TABLET), 3 TAB PO DAILY, (Reported) Spironolactone (Spironolactone), 1 TAB PO DAILY, (Reported) Scheduled PRN Acetaminophen (Acetaminophen), 650 MG PO Q6HP PRN for MILD PAIN, (Reported) Hydrocodone-Acetaminophen (Hydrocodone/Acetaminophen 5-325 mg), 1 TAB PO Q8HP PRN for PAIN SCALE 1 THRU 6, (Reported) Miscellaneous Medications Amlodipine Besylate (Norvasc Tablet), 2.5 MG PO, (Reported) Benazepril & Hydrochlorothiazi (Benazepril Hydrochloride/ 10-12.5 mg), 1 TAB PO, (Reported) Brimonidine Tartrate-Timolol M (Brimonidine Tartrate/Josr 0.2-0.5 %), 1 KMIANI OP, (Reported) Mjlqhadryuz-Mqoesgtipak-Htk C- (Glucosamine Chondroitin), 1 OR, (Reported) Ipratropium-Albuterol (Combivent Respimat), 1 IN, (Reported) Magnesium Hydroxide (Milk Of Magnesia Oral Suspension), 30 ML GT, (Reported) Senna (Senokot), 8.6 MG PO, (Reported) Discharge Statement: "Patient was advised to return to the ER or call 911 if any headaches, dizziness, shortness of breath, chest pain, abdominal pain, bleeding, fevers, or worsening of medical condition. Patient was counseled about treatment plan, medications, possible side effects, patientverbalized understanding. All questions were answered to the best of my ability. This discharge took greater then 30 minutes in planning, reviewing documentation, counseling the patient, and discussing with other team members." ASSESSMENT ASSESSMENT Assessment NOEMI MCKEON DO Jul 21, 2025 12:05
[2025-07-22 01:00] VITALS: BP 153/82; PULSE 52; RESP 16; TEMP 97.9; O2SAT 98
[2025-07-22 05:00] VITALS: BP 136/85; PULSE 60; RESP 17; TEMP 97.9; O2SAT 97
[2025-07-22 08:50] VITALS: BP 124/8; PULSE 66; RESP 20; TEMP 98.2; O2SAT 94
== END 2025-07-22 11:34 | disposition home or self-care (01) | DRG 70 ==
LOC: ER 15:07 → EDBD 15:07 → OVERFLOW 21:18 → EAST 07-18 21:57 → CENTRAL 07-18 22:50
PROVIDERS: ADMIT Internal Medicine; ATTEND Internal Medicine
DX: G93.41 Metabolic encephalopathy (principal); J15.9 Unspecified bacterial pneumonia; F03.90 Unspecified dementia, unspecified severity, without behavioral disturbance, psychotic disturbance, mood disturbance, and anxiety; F20.9 Schizophrenia, unspecified; E86.0 Dehydration; Z86.73 Personal history of transient ischemic attack (TIA), and cerebral infarction without residual deficits; Z79.899 Other long term (current) drug therapy
CPT/HCPCS: 36415; 70450; 71045; 80053; 81001; 82962; 83605; 85025; 85610; 85730; 87040; 93005; 99291; 99292; G0378